=== PATIENT | female | born 1960 | race African-American/Black ===

== ENCOUNTER 2020-01-18 15:33 | Outpatient (REF) | payer OTHER, SELFPAY ==
--- NOTE | 2020-01-18 | XR_ITS ---
EXAMINATION: XR FOOT, LEFT CLINICAL INFORMATION: Left foot pain. COMPARISON: None TECHNIQUE: AP, lateral, and oblique views of the left foot. FINDINGS: There is no acute fracture or dislocation. Small calcifications are seen lateral to the fifth digit phalanges. The tarsal bones are normally aligned. There is a small retrocalcaneal spur. The soft tissues are unremarkable. IMPRESSION: 1. Small degenerative fifth digit calcifications and small retrocalcaneal spur without acute abnormality.
== END 2020-01-18 15:34 | disposition home or self-care (01) ==
LOC: HO.XRAY 15:33
PROVIDERS: PCP Internal Medicine; Visit Provider Emergency Medicine
DX: M79.672 Pain in left foot (principal)
CPT/HCPCS: 73630

== ENCOUNTER 2021-01-02 10:48 | Outpatient (REF) | payer OTHER, SELFPAY ==
--- NOTE | ~2021-01-02 | MM_ITS ---
EXAMINATION: MM SCREENING DIGITAL BREAST TOMOSYNTHESIS, BILATERAL CLINICAL INFORMATION: Screening. Asymptomatic. The lifetime risk of breast cancer based on the Tyrer-Cuzick Model is 9.9%. COMPARISON: Mammography: November 16, 2019 and studies dating back to April 11, 2016 TECHNIQUE: Digital breast tomosynthesis is performed in both the craniocaudal and mediolateral oblique views along with computer-aided detection (CAD). Synthesized 2D images are generated from the tomosynthesis. FINDINGS: There are scattered areas of fibroglandular density (ACR BI-RADS breast composition Category b). There are no significant masses, abnormal calcifications, or other abnormalities. MM/MM tomosynthesis screening BI IMPRESSION: There are no significant changes from prior study. ASSESSMENT: BI-RADS 1: Negative RECOMMENDATION: Routine annual mammography screening. This patient's information was entered into a reminder system with a target due date for their next mammogram.
== END 2021-01-02 10:49 | disposition home or self-care (01) ==
LOC: HO.MAMMO 10:48
PROVIDERS: PCP Internal Medicine; Visit Provider Internal Medicine
DX: Z12.31 Encounter for screening mammogram for malignant neoplasm of breast (principal)
CPT/HCPCS: 77063; 77067

== ENCOUNTER 2021-06-05 10:06 | Outpatient (REF) | payer OTHER, SELFPAY ==
--- NOTE | ~2021-06-05 | XR_ITS ---
EXAMINATION: XR FOOT, RIGHT CLINICAL INFORMATION: Pain COMPARISON: None TECHNIQUE: AP, lateral, and oblique views of the right foot. FINDINGS: Bone alignment is normal. No acute fracture or dislocation is seen. There is periarticular soft tissue calcification or ossification adjacent to the lateral PIP joint of the fifth toe. Joint spaces are otherwise normal. There are is a small plantar calcaneal spur. XR/XR foot RT min 3V IMPRESSION: Small soft tissue calcification or ossification adjacent to the lateral PIP joint of the fifth toe. Small plantar calcaneal spur.
== END 2021-06-05 10:07 | disposition home or self-care (01) ==
LOC: HO.XRAY 10:06
PROVIDERS: Absent Provider Internal Medicine; PCP Internal Medicine; Visit Provider Internal Medicine
DX: M79.671 Pain in right foot (principal)
CPT/HCPCS: 73630

== ENCOUNTER 2022-01-03 11:09 | Outpatient (REF) | payer OTHER, SELFPAY ==
--- NOTE | ~2022-01-03 | MM_ITS ---
EXAMINATION: MM SCREENING DIGITAL BREAST TOMOSYNTHESIS, BILATERAL CLINICAL INFORMATION: Screening. Asymptomatic. Family history breast cancer, mother. The lifetime risk of breast cancer based on the Tyrer-Cuzick Model is 14%. COMPARISON: Mammography: 01/02/2021, 11/16/2019, 06/27/2018 TECHNIQUE: Digital breast tomosynthesis is performed in both the craniocaudal and mediolateral oblique views along with computer-aided detection (CAD). Synthesized 2D images are generated from the tomosynthesis. FINDINGS: There are scattered areas of fibroglandular density (ACR BI-RADS breast composition Category b). There are no significant masses, abnormal calcifications, or other abnormalities. Parenchymal pattern is similar to prior studies. There is no developing density or architectural abnormality. The axilla and skin contours are unremarkable. No significant changes. MM/MM tomosynthesis screening BI IMPRESSION: No mammographic evidence of malignancy. ASSESSMENT: BI-RADS 1: Negative RECOMMENDATION: Routine annual mammography screening. This patient's information was entered into a reminder system with a target due date for their next mammogram.
== END 2022-01-03 11:10 | disposition home or self-care (01) ==
LOC: HO.MAMMO 11:09
PROVIDERS: PCP Internal Medicine; Visit Provider Internal Medicine
DX: Z12.31 Encounter for screening mammogram for malignant neoplasm of breast (principal)
CPT/HCPCS: 77063; 77067

== ENCOUNTER 2022-03-20 | Outpatient (REF) | payer OTHER, SELFPAY ==
--- NOTE | ~2022-03-20 | XR_ITS ---
EXAMINATION: XR KNEE, RIGHT XR KNEE, STANDING BILATERAL CLINICAL INFORMATION: Pain COMPARISON: Bilateral knee radiograph from 09/25/2018 TECHNIQUE: 2 views of the right knee and single views of the bilateral standing knees FINDINGS: No acute visible fracture or dislocation. Bilateral moderate multi compartment degenerative changes. Moderate to severe narrowing of the right medial femorotibial and left femorotibial compartments. Spurring of the tibial spines. Periarticular osteophytes along the right distal femoral condyle, tibial plateau, and superior and inferior margins of the patella. Joint spaces and alignment are otherwise maintained. Trace right-sided knee joint effusion. Soft tissues are unremarkable. XR/XR knee standing BI IMPRESSION: 1. No acute visible fracture or dislocation. 2. Bilateral moderate multi compartment degenerative changes. 3. Trace right-sided knee joint effusion.
--- NOTE | ~2022-03-20 | XR_ITS ---
EXAMINATION: XR KNEE, RIGHT XR KNEE, STANDING BILATERAL CLINICAL INFORMATION: Pain COMPARISON: Bilateral knee radiograph from 09/25/2018 TECHNIQUE: 2 views of the right knee and single views of the bilateral standing knees FINDINGS: No acute visible fracture or dislocation. Bilateral moderate multi compartment degenerative changes. Moderate to severe narrowing of the right medial femorotibial and left femorotibial compartments. Spurring of the tibial spines. Periarticular osteophytes along the right distal femoral condyle, tibial plateau, and superior and inferior margins of the patella. Joint spaces and alignment are otherwise maintained. Trace right-sided knee joint effusion. Soft tissues are unremarkable. XR/XR knee RT 2V IMPRESSION: 1. No acute visible fracture or dislocation. 2. Bilateral moderate multi compartment degenerative changes. 3. Trace right-sided knee joint effusion.
== END 2022-03-20 00:01 | disposition home or self-care (01) ==
LOC: HO.HOSX
PROVIDERS: Visit Provider Physician Assistant
DX: M25.561 Pain in right knee (principal)
CPT/HCPCS: 73560; 73565

== ENCOUNTER 2022-11-09 12:31 | Outpatient (REF) | payer OTHER, SELFPAY ==
[2022-11-09 13:27] LABS: MANUAL DIFF FLAG NO
[2022-11-09 13:35] LABS: Basophils Percent Auto 0.3 % (0-2); Eosinophils Absolute Auto 0.1 X10*3/uL (0.0-0.4); Eosinophils Percent Auto 1.6 % (0-4); Hematocrit 38.6 % (37.0-47.0); Hemoglobin 12.4 g/dl (12.0-16.0); Imm Gran Abs Auto 0.02 X10*3/uL (0.00-0.03); Imm Gran Pct Auto 0.3 % (0.0-0.4); Lymphocytes Absolute Auto 3.1 X10*3/uL (1.2-4.9); Lymphocytes Percent Auto 49.3 % (20-40); Mean Corpuscular HGB Conc 32.1 g/dl (31.0-35.0); Mean Corpuscular Volume 83.9 fL (80.0-98.0); Mean Platelet Volume 9.9 fL (9.4-12.3); Monocytes Absolute Auto 0.6 X10*3/uL (0.1-1.2); Monocytes Percent Auto 9.5 % (2-11); Neutrophils Absolute Auto 2.4 x10*3/uL (2.0-8.3); Platelet Count 236 X10*3/uL (160-400); Red Cell Distribution Width 13.2 % (11.0-16.0); White Blood Count 6.2 X10*3/uL (4.8-10.8)
[2022-11-09 19:21] LABS: Alanine Aminotransferase 16 U/L (0-31); Albumin Level 4.1 g/dL (3.5-5.0); Alkaline Phosphatase 67 U/L (39-117); Amylase 44 U/L (28-100); Aspartate Amino Transferase 15 U/L (5-31); Bilirubin Direct 0.2 mg/dL (0.0-0.5); Bilirubin Total 0.4 mg/dL (0.0-1.0); Lipase 16 U/L (8-78); Total Protein 7.8 g/dL (6.5-8.0)
== END 2022-11-09 12:32 | disposition home or self-care (01) ==
LOC: HO.HHCL 12:31
PROVIDERS: Visit Provider Nurse Practitioner Primary Care
DX: R53.83 Other fatigue (principal); R10.12 Left upper quadrant pain
CPT/HCPCS: 36415; 80076; 82150; 83690; 85025

== ENCOUNTER 2022-12-05 17:23 | Outpatient (REF) | payer OTHER, SELFPAY ==
[2022-12-11 23:08] LABS: HPV mRNA E6/E7 rflx Not Detected (Not Detected)
== END 2022-12-05 17:24 | disposition home or self-care (01) ==
LOC: HO.HHCL 17:23
PROVIDERS: Visit Provider Internal Medicine
DX: Z12.4 Encounter for screening for malignant neoplasm of cervix (principal)
CPT/HCPCS: 87624; 88142

== ENCOUNTER 2023-01-03 08:55 | Outpatient (AMB) | payer OTHER, SELFPAY ==
[2023-01-03 08:59] VITALS: BMI 32.9
--- NOTE | 2023-01-03 08:59 | A.OFFVIS_ITS ---
Intake Vital Signs 01/03/23 08:59 Height 5 ft 2 in Weight 180 lb BMI 32.9 Intake Visit Reasons: OV -Primary Osteoarthritis of both knees Intake Note: Dorothea is a 62 year old female who presents today for a follow up of her left knee. At her last visit injections were discussed but were not administered as she was going to discuss with her eye doctor. Patient reports she doesn't want to get injections today but would like to try going to PT for both of her knees. She is also having concerns of pain in both of her feet, pain is on the medial a spect on both. Allergies No Known Allergies [No Known Allergies*] Allergy (Verified 01/03/23 08:59) HPI OV -Primary Osteoarthritis of both knees HPI Details 62-year-[facility] of bilateral knee pain. The patient states she discussed cortisone injections with her eye doctor and would still like to defer at this time. She would like to move forward with physical therapy to work on the bilateral knees. She states cortisone injections do not give her any relief. She is not interested in moving forward for a total knee arthroplasty. She states she is able to stand and walk around the store but states it causes her pain. The patient is also expressing concerns with pain in the bilateral feet on the medial aspect. She reports a burning sensation in the bilateral feet. Patient confirms a medical history of diabetes mellitus. 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 No ecchymosis, erythema, or joint effusion. No tenderness to palpation to the medial or lateral joint lines. Full knee extension and flexion. Crepitus felt with ROM. Negative Rosailo's. NVI. Assessment & Plan Assessment & Plan (1) Osteoarthritis of right knee: Code(s): M17.11 - Unilateral primary osteoarthritis, right knee Qualifiers: Osteoarthritis type: unspecified Qualified Code(s): M17.11 - Unilateral primary osteoarthritis, right knee (2) Osteoarthritis of left knee: Code(s): M17.12 - Unilateral primary osteoarthritis, left knee Qualifiers: Osteoarthritis type: unspecified Qualified Code(s): M17.12 - Unilateral primary osteoarthritis, left knee Plan Ms. Zheng is a 62-year-old female who presents in the office today for a follow up of bilateral knee pain. The patient states she discussed cortisone injections with her eye doctor and would still like to defer at this time. She would like to move forward with physical therapy to work on the bilateral knees. She states cortisone injections do not give her any relief. She is not interested in moving forward for a total knee arthroplasty. She states she is able to stand and walk around the store but states it causes her pain. The patient is also expressing concerns with pain in the bilateral feet on the medial aspect. She reports a burning sensation in the bilateral feet. Patient confirms a medical history of diabetes mellitus. Bilateral feet: Due to the patient having a burning sensation in her bilateral feet I have asked that she follows up with her PCP due to having a significant medical history of diabetes. Bilateral knees: The patient will be referred to physical therapy to work on the bilateral knees. Follow up will be PRN, or sooner if needed. Orders: Orders PT Evaluation and Treatment Today M17.11 - Unilateral primary osteoarthritis, right knee, M17.12 - Unilateral primary osteoarthritis, left knee Patient Instructions: Scribed for Farida Gerrad PA-C by Nelly Owens biomedical photographer, on 01/03/2023 at 8:56 am, EST. Coding Level of Care Code Est Pt Level 3 (31537) Diagnoses Osteoarthritis of right knee, unspecified osteoarthritis type M17.11 Osteoarthritis type: unspecified Osteoarthritis of left knee, unspecified osteoarthritis type M17.12 Osteoarthritis type: unspecified
== END 2023-01-03 09:24 | disposition home or self-care (01) ==
PROVIDERS: PCP Internal Medicine; Visit Provider Physician Assistant
DX: M17.10 Unilateral primary osteoarthritis, unspecified knee (principal)
CPT/HCPCS: 99213

== ENCOUNTER → 2023-01-03 08:55 | Outpatient (BNVA) | payer OTHER, SELFPAY | PROVIDERS: PCP Internal Medicine; Visit Provider Physician Assistant ==

== ENCOUNTER 2023-01-09 11:07 | Outpatient (REF) | payer OTHER, SELFPAY | END 2023-01-09 11:08 | disposition home or self-care (01) | LOC: HO.MAMMO 11:07 | PROVIDERS: Visit Provider Internal Medicine | DX: Z12.31 Encounter for screening mammogram for malignant neoplasm of breast (principal) | CPT/HCPCS: 77063; 77067 ==

== ENCOUNTER → 2023-01-09 11:30 | Outpatient (BNV) | payer OTHER, SELFPAY | PROVIDERS: Visit Provider Radiology Diagnostic Radiology | DX: Z12.31 Encounter for screening mammogram for malignant neoplasm of breast (principal) | CPT/HCPCS: 77063; 77067 ==

== ENCOUNTER 2023-02-15 10:00 | Outpatient (RCR) | payer OTHER, SELFPAY | END 2023-04-29 10:12 | disposition home or self-care (01) | LOC: HO.PT 10:00 | PROVIDERS: PCP Internal Medicine; Visit Provider Physician Assistant | DX: M17.0 Bilateral primary osteoarthritis of knee (principal) | CPT/HCPCS: 97110; 97140; 97161 ==

== ENCOUNTER 2023-09-18 15:04 | Outpatient (REF) | payer OTHER, SELFPAY ==
[2023-09-18 16:07] LABS: MANUAL DIFF FLAG NO
[2023-09-18 16:24] LABS: Basophils Percent Auto 0.4 % (0-2); Eosinophils Absolute Auto 0.1 X10*3/uL (0.0-0.4); Eosinophils Percent Auto 1.3 % (0-4); Hematocrit 39.1 % (37.0-47.0); Hemoglobin 12.6 g/dl (12.0-16.0); Imm Gran Abs Auto 0.01 X10*3/uL (0.00-0.03); Imm Gran Pct Auto 0.2 % (0.0-0.4); Lymphocytes Absolute Auto 2.1 X10*3/uL (1.2-4.9); Lymphocytes Percent Auto 39.8 % (20-40); Mean Corpuscular HGB Conc 32.2 g/dl (31.0-35.0); Mean Corpuscular Hemoglobin 27.4 pg (27.0-33.0); Mean Platelet Volume 11.3 fL (9.4-12.3); Monocytes Absolute Auto 0.4 X10*3/uL (0.1-1.2); Neutrophils Absolute Auto 2.7 x10*3/uL (2.0-8.3); Neutrophils Percent Auto 51.3 % (45-73); Platelet Count 247 X10*3/uL (160-400); White Blood Count 5.3 X10*3/uL (4.8-10.8)
[2023-09-18 16:57] LABS: Alanine Aminotransferase 22 U/L (0-31); Alkaline Phosphatase 65 U/L (39-117); Anion Gap 16 (12-20); Aspartate Amino Transferase 16 U/L (5-31); Bilirubin Direct 0.1 mg/dL (0.0-0.5); Bilirubin Total 0.4 mg/dL (0.0-1.0); Blood Urea Nitrogen 14 mg/dL (9-16); Calcium 9.5 mg/dL (8.4-10.2); Carbon Dioxide 26 mmol/L (22-29); Chloride 102 mmol/L (96-108); Cholesterol 167 mg/dL (<200); Estimated Glomerular Filt Rate > 60; Glucose Random 277 mg/dL (60-115); HDL Cholesterol 44 mg/dL (>40); LDL Cholesterol Calculated 70 mg/dL (<100); Sodium 140 mmol/L (135-145); Total Protein 7.6 g/dL (6.5-8.0); Triglycerides 267 mg/dL (<150)
[2023-09-18 17:00] LABS: TSH reflex Free T4 2.68 uIU/mL (0.32-4.0); Vitamin D 25-OH Total 17.7 ng/mL (>30)
[2023-09-18 17:10] LABS: Folate 8.4 ng/mL (> or = 4.0); Vitamin B12 727 pg/mL (200-900)
[2023-09-21 17:43] LABS: TS Negative Control Passed; TS Panel A 0; TS Panel B 0; TS Positive Control Passed; TSpotTB Negative (Negative)
== END 2023-09-18 15:05 | disposition home or self-care (01) ==
LOC: HO.HHCL 15:04
PROVIDERS: Visit Provider Internal Medicine
DX: Z00.00 Encounter for general adult medical examination without abnormal findings (principal); Z13.89 Encounter for screening for other disorder
CPT/HCPCS: 36415; 80048; 80061; 80076; 82306; 82607; 82746; 84443; 85025; 86481

== ENCOUNTER 2024-01-15 11:13 | Outpatient (REF) | payer OTHER, SELFPAY ==
--- NOTE | ~2024-01-15 | MM_ITS ---
EXAMINATION: MM SCREENING DIGITAL BREAST TOMOSYNTHESIS, BILATERAL CLINICAL INFORMATION: Screening. Asymptomatic. COMPARISON: Mammography: Comparison is made with available priors TECHNIQUE: Digital breast mammography with tomosynthesis is performed in both the craniocaudal and mediolateral oblique views along with computer-aided detection (CAD). FINDINGS: There are scattered areas of fibroglandular density (ACR BI-RADS breast composition Category b). There are no significant masses, abnormal calcifications, or other abnormalities. MM/MM tomosynthesis screening BI IMPRESSION: No mammographic evidence of malignancy. ASSESSMENT: BI-RADS BI-RADS 1 - Negative RECOMMENDATION: Routine annual mammography screening. 1 year F/U This examination should not preclude the clinical evaluation of a suspicious palpable abnormality. This patient's information was entered into a reminder system with a target due date for their next mammogram. Electronically signed by: Shraddha Porras DO 01/27/2024 12:42 PM EDT
== END 2024-01-15 11:14 | disposition home or self-care (01) ==
LOC: HO.MAMMO 11:13
PROVIDERS: PCP Internal Medicine; Visit Provider Internal Medicine
DX: Z12.31 Encounter for screening mammogram for malignant neoplasm of breast (principal)
CPT/HCPCS: 77063; 77067

== ENCOUNTER → 2024-01-15 11:30 | Outpatient (BNV) | payer OTHER, SELFPAY | PROVIDERS: PCP Internal Medicine; Visit Provider Internal Medicine | DX: Z12.31 Encounter for screening mammogram for malignant neoplasm of breast (principal) | CPT/HCPCS: 77063; 77067 ==

== ENCOUNTER 2024-05-26 13:20 | Outpatient (REF) | payer OTHER, SELFPAY ==
--- OUTSIDE RECORDS SUMMARY | 2024-05-26 14:26 | XMS_ITS | Encounter Summary ---
Author Organization [employer] Address [address] [facility] 7 [place] [address] Care Team Providers Care Blaster Helper Name Role Phone Anya Salgado MD Primary Care Provide r Encounter Details Date Type Department Care Team (Latest Contact Info) Description 03/02/2022 Abstract [facility] CONVERSIONS Dental, Provider, DDS Social History Tobacco Use Types Packs/Day Years Used Date Smoking Tobacco: Never Assessed Comments Unknown Sex and Gender Information Value Date Recorded Sex Assigned at Female 02/12/2022 10:30 AM EDT Legal Sex Female 10:30 AM EDT Gender Identity Female 02/12/2022 10:30 AM EDT Sexual Orientation Straight 02/12/2022 10 :30 AM EDT documented as of this encounter Plan of Treatment Upcoming Encounters Date Type Department Care Team (Late st Contact Info) Description 05/26/2024 2:30 PM EST Office Visit [facility] MEDICINE [address] [place] [address] Byron Cruz MD [address] [place] [address] Arrived 05/28/2024 10:30 AM EST Office Visit [facility] OPTOMETRY [address] [place] [address] Dedra Garcia, KEENAN [address] [place] [address] 06/04/2024 10:00 AM EST Office Visit [facility] ADULT DENTAL [address] [place], [place] [phone] Lluvia Shields [address] [place], [place] [phone] 07/07/2024 11:00 AM EDT Office Visit [facility] MEDICINE [address] [place] [address] Anya Salgado MD [address] [place], [place] [phone] documented as of this encounter Visit Diagnoses Not on filedocumented in this encounter Care Teams Blaster Helper Relationship Specialty Start Date End Date Anya Salgado MD [address] [place] [phone] PCP - General Family Medicine 01/31/18 documented as of this encounter
--- OUTSIDE RECORDS SUMMARY | 2024-05-26 14:26 | XMS_ITS | Encounter Summary ---
Author Organization [employer] Address [address] 7[address] [place] [address] Care Team Providers Care Environmental Restoration Planner Name Role Phone Anya Salgado MD Primary Care Provide r Reason for Visit * Reason Comments Pre-visit Planning SDOH Screening posit jackelyn and Tobacco screening negative Encounter Details Date Type Department Care Team (Late st Contact Info) Description 05/07/2024 Patient Outreach [facility] MEDICINE [address] [place], [place] [phone] Anya Salgado MD [address] [place], [place] [phone] Pre-visit Planning (SDOH Screening positive and Tobacco screening negative) Social History Tobacco Use Types Packs/Day Years Used Date Smoking Tobacco: Never Passive Smoke Exposure: Never Smokeless Tobacco: Never Alcohol Use Standard Drinks/Week Comments Not Currently 0 (1 standard drink = 0.6 oz pur e alcohol) Alcohol Answer Date Recorded Frequency of Alcohol Consumption Not on file 12/31/2023 Average Number of Drinks Not on file 024 Frequency of Binge Drinking Not on file 12/14 Score 0 12/31/2023 Depression Answer Date Recorded Patient Health Questionnaire-9 Score 0 12/31/2023 Patient Health Questionnaire-9 Score 0 12/31/2023 Last PHQ-9: Questionnaire Data Not on file 0 12/31/2023 Housing Stability Answer Date Recorded What is your housing situation today? I have chi quintin 05/07/[address] you li ve. Do you have problems with any of the following? None of the above 05/07/2024 Food Insecurity Answer Date Recorded Within the past 12 months, y ou worried that your food would run out before you got money to buy more: Never True 02/03/2023 Within the past 12 months,th e food you bought just didn't last and you didn't have enough money to get more: Never True Transportation Answer Date Recorded In the past 12 months, has l ack of transportation kept you from medical appts, meetings, work or from getting things needed for daily living? Yes, it has kept me from medical appointments or getting medications. 05/07/2024 Utilities Answer Date Recorded In the past 12 months, has t he electric, gas, oil or water company threatened to shut off services in your home? No 02/03/2023 Depression Answer Date Recorded Patient Health Questionnaire-2 Score 0 12/31/2023 Internet Access Answer Date Recorded Internet Access Q1 Yes 05/07/2024 Internet Access Q2 Not on file 05/07/2024 Comments Unknown Sex and Gender Information Value Date Recorded Sex Assigned at Female 02/12/2022 10:30 AM EDT Legal Sex Female 10:30 AM EDT Gender Identity Female 02/12/2022 10:30 AM EDT Sexual Orientation Straight 02/12/2022 10 :30 AM EDT documented as of this encounter Progress Notes * Stephanie Grier - 05/07/2024 11:32 AM EST QUIANA Mccarty placed successful outbound call to patient for pre-visit planning. Patient name and confirmed. Patient confirms appt date and time, and has transportation arrangements. Biggest concern for appointment at this time is no concerns. Patient advised to bring to appointment a photo id and insurance card. Appropriate screenings completed in anticipation of appointment. SDOH positive. Patient looking for assistance with Transportation. Referral will be placed. documented in this encounter Plan of Treatment Upcoming Encounters Date Type Department Care Team (Late st Contact Info) Description 05/26/2024 2:30 PM EST Office Visit [facility] MEDICINE [address] [place] [phone] Byron Cruz MD [address] [place] [address] Arrived 05/28/2024 10:30 AM EST Office Visit [facility] OPTOMETRY [address] [place] [address] Dedra Garcia, OD [address] [place] [address] 06/04/2024 10:00 AM EST Office Visit [facility] ADULT DENTAL [address] [place] [address] Alyson, Lluvia [address] [place] [address] 07/07/2024 11:00 AM EDT Office Visit [facility] MEDICINE [address] [place] [address] Anya Salgado MD [address] [place] [address] documented as of this encounter Visit Diagnoses Not on filedocumented in this encounter Additional Health Concerns Assessment Noted Time PHQ-9 Depression Total Score: 0 12/31/19 24 10:55 AM EDT documented as of this encounter Care Teams Environmental Restoration Planner Relationship Specialty Start Date End Date Anya Salgado MD [address] [place], [place] [phone] PCP - General Family Medicine 01/31/18 documented as of this encounter
--- OUTSIDE RECORDS SUMMARY | 2024-05-26 14:26 | XMS_ITS | Encounter Summary ---
Author Organization [employer] Address [address] [facility] 7t [place] [address] Care Team Providers Care Client Support Representative Name Role Phone Anya Salgado MD Primary Care Provide r Reason for Visit * Reason Onset Date Comments Med Refill 03/19/2024 Encounter Details Date Type Department Care Team (Late st Contact Info) Description 03/19/2024 Telephone [facility] MEDICINE [address] [place], [place] [phone] Anya Salgado MD [address] [place], [place] [phone] Med Refill Social History Tobacco Use Types Packs/Day Years [...] your housing situation today? I have chi ribeiro 06/12/[address] you li ve. Do you have problems with any of the following? Pests such as bugs, ants, or mice;Water leaks 06/12/2023 Food Insecurity Answer Date Recorded Within the [...] from getting things needed for daily living? No 02/03/2023 Utilities Answer Date Recorded In the past 12 months, has t he electric, gas, oil or water company threatened to shut off services in your home? No 02/03/2023 Depression Answer Date Recorded Patient Health Questionnaire-2 Score 0 12/31/2023 Comments Unknown Sex and Gender Information Value Date Recorded Sex Assigned at Female 02/12/2022 10:30 AM EDT Legal Sex Female 10:30 AM EDT Gender Identity Female 02/12/2022 10:30 AM EDT Sexual Orientation Straight 02/12/2022 10 :30 AM EDT documented as of this encounter Miscellaneous Notes * Telephone Encounter - Barb Cordero LPN - 03/19/2024 1:10 PM EST Medication pended to PCP. * Telephone Encounter - Jos Sow - 03/19/2024 12:11 PM EST TC from pt requesting medication refill. Medications needing refill : glipiZIDE XL (Glucotrol XL) 10 MG 24 hr tablet amLODIPine (Norvasc) 2.5 MG tablet To be sent to: [facility] - [place], [place] - [address] [facility] documented in this encounter Plan of Treatment Upcoming Encounters Date Type Department Care Team (Late st Contact Info) Description 05/26/2024 2:30 PM EST Office Visit [facility] MEDICINE [address] [place] [address] Byron Cruz MD [address] [place] [address] Arrived 05/28/2024 10:30 AM EST Office Visit [facility] OPTOMETRY [address] [place] [address] Dedra Garcia, OD [address] [place] [address] 06/04/2024 10:00 AM EST Office Visit [facility] ADULT DENTAL [address] [place] [address] Alyson, Lluvia [address] [place] [address] 07/07/2024 11:00 AM EDT Office Visit [facility] MEDICINE [address] [place] [address] Anya Salgado MD [address] [place] [address] documented as of this encounter Visit Diagnoses Not on filedocumented in this encounter Additional Health Concerns Assessment Noted Time PHQ-9 Depression Total Score: 0 12/31/19 24 10:55 AM EDT documented as of this encounter Care Teams Client Support Representative Relationship Specialty Start Date End Date Anya Salgado MD [address] [place], [place] [phone] PCP - General Family Medicine 01/31/18 documented as of this encounter
--- OUTSIDE RECORDS SUMMARY | 2024-05-26 14:26 | XMS_ITS | Encounter Summary ---
Author Organization [employer] Address [address] [facility] [address]t [place] [address] Care Team Providers Care Instrumental Teacher Name Role Phone Anya Salgado MD Primary Care Provide r Reason for Visit * Reason Onset Date Comments Chart Prep 05/11/2024 Encounter Details Date Type Department Care Team ([facility] st Contact Info) Description 05/11/2024 Telephone [facility] MEDICINE [address] [place], [place] [phone] Anya Salgado MD [address] [place], [place] [phone] Chart Prep Social History Tobacco Use Types Packs/Day Years [...] housing situation today? I have chi ribeiro 05/07/[address] you li [...] encounter Miscellaneous Notes * Telephone Encounter - Bernadette Brooke [place] - 05/11/2024 10:49 AM EST Chart Prep Attempted to call pt in regards to upcoming PE appt on 05/21/2024. Had to [facility] stating call back number. If pt returns call please inform her that the PE appt she has, the provider she will be seeing has a recommended preference of conducting Annual Exams. Pt would have to wear a gown in case a breast exam is completed. All these visits are chaperoned by pcp's [place]. Labs: not applicable Images: not applicable Vaccines due: Covid Due, Tdap Due, Hep A Due, Hep B Due, RSV in Pharmacy Due, and Shingles in pharmacy Due Referrals: Not Applicable Screenings: Foot Exam and HIV screening Overdue care gaps: Glucose Chart prep for upcoming appt with Dr.Esparza ferguson. LB documented in this encounter Plan of Treatment Upcoming Encounters Date Type Department Care Team (Late st Contact Info) Description 05/26/2024 2:30 PM EST Office Visit [facility] MEDICINE [address] [place] [address] Byron Cruz MD [address] [place] [address] Arrived 05/28/2024 10:30 AM EST Office Visit [facility] OPTOMETRY [address] [place] [address] Dedra Garcia OD [address] [place] [address] 06/04/2024 10:00 AM EST Office Visit [facility] ADULT DENTAL [address] [place] [address] Alyson, Lluvia [address] [place] [address] 07/07/2024 11:00 AM EDT Office Visit [facility] MEDICINE [address] [place] [address] Anya Salgado MD [address] [place] [address] documented as of this encounter Visit Diagnoses Not on filedocumented in this encounter Additional Health Concerns Assessment Noted Time PHQ-9 Depression Total Score: 0 12/31/19 24 10:55 AM EDT documented as of this encounter Care Teams Instrumental Teacher Relationship Specialty Start Date End Date Anya Salgado MD [address] [place] [address] PCP - General Family Medicine 01/31/18 documented as of this encounter
--- OUTSIDE RECORDS SUMMARY | 2024-05-26 14:26 | XMS_ITS | Clinical Summary ---
Author Organization [facility] Address [address] [place] [address] Care Team Providers Care Sanitation Lead Name Role Phone Unavailable Primary Care Provider Unavailabl e Social History Tobacco Use Types Packs/Day Years Used Date Smoking Tobacco: Never Assessed Comments Unknown Sex and Gender Information Value Date Recorded Sex Assigned at Not on file Legal Sex Female 2:24 PM EST Gender Identity Not on file Sexual Orientation Not on file Plan of Treatment Health Maintenance Due Date Last Done Comments Breast Cancer Screening 1961 DTaP,Tdap,and Td Vaccines (1 - Tdap) 1968 Cervical Cancer Screening: P ap Smear 1982 Pneumococcal Vaccine: 50+ Ye ars (1 of 1 - PCV) 2011 Zoster Vaccines (1 of 2) 2011 Colorectal Cancer Screening: Colonoscopy 03/14/2022 Depression Screening 03/14/2022 HIV Screening 03/14/2022 Hepatitis C Screening 03/14/2022 Social Influencers of Health Screening 03/14/2022 COVID-19 Vaccine ( - 2023-2 5 season) 2023 Influenza Vaccine (#1) 2023 RSV Immunization Patients 60 + Years Old (1 - 1-dose 75+ series) 2036 HIB Vaccines Aged Out No longer eligi ble based on patient's age to complete this topic HPV Vaccines Aged Out No longer eligi ble based on patient's age to complete this topic Hepatitis A Vaccines Aged Out No long er eligible based on patient's age to complete this topic Hepatitis B Vaccines Aged Out No long er eligible based on patient's age to complete this topic IPV Vaccines Aged Out No longer eligi ble based on patient's age to complete this topic MMR Vaccines Aged Out No longer eligi ble based on patient's age to complete this topic Meningococcal ACWY Vaccine Aged Out N o longer eligible based on patient's age to complete this topic Meningococcal B Vacine Aged Out No lo nger eligible based on patient's age to complete this topic Pneumococcal Vaccine: Pediat rics (0 to 5 Years) and At-Risk Patients (6 to 64 Years) Aged Out No longer eligible b ased on patient's age to complete this topic RSV Immunization Patients Un terrell 20 months Aged Out No longer eligible b ased on patient's age to complete this topic Varicella Vaccines Aged Out No longer eligible based on patient's age to complete this topic
--- OUTSIDE RECORDS SUMMARY | 2024-05-26 14:26 | XMS_ITS | Encounter Summary ---
Author Organization [employer] Address [address] [place] [address] Care Team Providers Care Getter Welder Name Role Phone Anya Salgado MD Primary Care Provide r Encounter Details Date Type Department Care Team (Latest Contact Info) Description 05/26/2024 Travel Social History Tobacco Use Types Packs/Day Years [...] Description 05/26/2024 2:30 PM EST Office Visit [facility] [address] [place] [phone] Byron Cruz MD [address] [place] [address] Arrived 05/28/2024 10:30 AM EST Office Visit [facility] OPTOMETRY [address] [place] [address] Dedra Garcia, OD [address] [place] [address] 06/04/2024 10:00 AM EST Office Visit [facility] ADULT DENTAL [address] [place] [address] Alyson, Lluvia [address] [place] [address] 07/07/2024 11:00 AM EDT Office Visit [facility] [address] [place] [address] Anya Salgado MD [address] [place] [phone] documented as of this encounter Visit Diagnoses Not on filedocumented in this encounter Additional Health Concerns Assessment Noted Time PHQ-9 Depression Total Score: 0 12/31/19 24 10:55 AM EDT documented as of this encounter Care Teams Getter Welder Relationship Specialty Start Date End Date Anya Salgado MD [address] [place] [address] PCP - General Family Medicine 01/31/18 documented as of this encounter
--- OUTSIDE RECORDS SUMMARY | 2024-05-26 14:26 | XMS_ITS | Encounter Summary ---
Author Organization [employer] Address [address] [facility] 7[address] [place] [address] Care Team Providers Care Keymodule Assembly Machine Tender Name Role Phone Anya Salgado MD Primary Care Provide r Reason for Visit * Reason Onset Date Comments CHW 06/12/2023 Encounter Details Date Type Department Care Team ([facility] st Contact Info) Description 06/12/2023 Telephone [facility]ICINE [address] [place], [place] [phone] Anya Salgado MD [address] [place], [place] [phone] CHW Social History Tobacco Use Types Packs/Day Years Used Date Smoking Tobacco: Never Smokeless Tobacco: Never Alcohol Use Standard Drinks/Week Comments Not Currently 0 (1 standard drink = 0.6 oz pur e alcohol) Depression Answer Date Recorded Patient Health Questionnaire-9 Score 0 12/05/2022 Housing Stability Answer Date Recorded What is [...] Date Recorded Patient Health Questionnaire-2 Score 0 12/05/2022 Comments Unknown Sex and Gender Information Value Date Recorded Sex Assigned at Female 02/12/2022 10:30 AM EDT Legal Sex Female 10:30 AM EDT Gender Identity Female 02/12/2022 10:30 AM EDT Sexual Orientation Straight 02/12/2022 10 :30 AM EDT documented as of this encounter Miscellaneous Notes * Telephone Encounter - Kiet Bacon Wendy - 06/12/2023 3:35 PM EST Tc from pt returning Phone call. CHW Ej Ulrich, placed outbound call to patient for assistance with SDOH as a referral was placed by the provider. Patient had screened positive for the following SDOH insecurities. No answer atthis time. Patient's name and were not confirmed. CHW left detailed message and provided contact information requesting return call for assistance. Patient educated on extended clinic hours on Mondays through Wednesdays, and Walk-In Urgent Care Located in [facility] of [facility]. Patient provided with after-hours line for [facility], , which offer night time triage service and option to transfer toon call provider if needed. documented in this encounter Plan of Treatment Upcoming Encounters Date Type Department Care Team ([facility] st Contact Info) Description 05/26/2024 2:30 PM EST Office Visit [facility] MEDICINE [address] [place], [place] [phone] Byron Cruz MD [address] [place] [address] Arrived 05/28/2024 10:30 AM EST Office Visit [facility] OPTOMETRY [address] [place], [place] [phone] Dedra Garcia, OD [address] [place] [address] 06/04/2024 10:00 AM EST Office Visit [facility] ADULT DENTAL [address] [place] [address] Teddy Shieldsaris [address] [place] [address] 07/07/2024 11:00 AM EDT Office Visit [facility] MEDICINE [address] [place] [address] Anya Salgado MD [address] [place] [address] documented as of this encounter Visit Diagnoses Not on filedocumented in this encounter Additional Health Concerns Assessment Noted Time PHQ-9 Depression Total Score: 0 12/06/19 10:30 AM EDT documented as of this encounter Care Teams Keymodule Assembly Machine Tender Relationship Specialty Start Date End Date Anya Salgado MD [address] [place] [phone] PCP - General Family Medicine 01/31/18 documented as of this encounter
--- OUTSIDE RECORDS SUMMARY | 2024-05-26 14:26 | XMS_ITS | Encounter Summary ---
Author Organization [employer] Address [address] [facility] 7 [place] [address] Care Team Providers Care Ase Certified Technician Name Role Phone Anya Salgado MD Primary Care Provide r Encounter Details Date Type Department Care Team (Latest Contact Info) Description 04/21/2019 Abstract [facility] CONVERSIONS Dental, Provider, DDS Social History Tobacco [...] Description 05/26/2024 2:30 PM EST Office Visit [facility] MEDICINE [address] [place] [address] Byron Cruz MD [address] [place] [address] Arrived 05/28/2024 10:30 AM EST Office Visit [facility] OPTOMETRY [address] [place] [address] Dedra Garcia, KEENAN [address] [place] [address] 06/04/2024 10:00 AM EST Office Visit [facility] ADULT DENTAL [address] [place] [address] Lluvia Shields [address] [place] [address] 07/07/2024 11:00 AM EDT Office Visit [facility] MEDICINE [address] [place] [address] Anya Salgado MD [address] [place], [place] [phone] documented as of this encounter Visit Diagnoses Not on filedocumented in this encounter Care Teams Ase Certified Technician Relationship Specialty Start Date End Date Anya Salgado MD [address] [place], [place] [phone] PCP - General Family Medicine 01/31/18 documented as of this encounter
--- OUTSIDE RECORDS SUMMARY | 2024-05-26 14:26 | XMS_ITS | Encounter Summary ---
Author Organization [employer] Address [address] [facility] [address] [place] [address] Care Team Providers Care Supervisor Force Adjustment Name Role Phone Anya Salgado MD Primary Care Provide r Reason for Visit * Reason Comments Care Coordination CHW outreach for SDO H PT-1 and food needs-referral completed Encounter Details Date Type Department Care Team (Latest Contact Info) Description 05/07/2024 Patient Outreach [facility]INE [address] [place], [place] [phone] Anya Salgado MD [address] [place], [place] [phone] Care Coordination (CHW outreach for SDOH PT-1 and food needs-referral completed /) Social History Tobacco Use Types Packs/Day Years [...] as of this encounter Progress Notes * Ej Ulrich - 05/07/2024 2:26 PM EST CHW Ej Ulrich, placed outbound call to patient for assistance with SDOH as a referral was received by the provider. Patient's name and were confirmed. Patient screened positive for the following SDOH food insecurities. CHW referral patient to the local list of pantries in the area for help. CHW advice patient to connect with [employer] insurance to get more resources for her transportation need s. Patient verbalizes understanding, and able to agree with plan to follow up. Patient educated on extended clinic hours on Mondays through Wednesdays, and Walk-In Urgent Care Located in [facility] of [facility]. Patient provided with after-hours line for [facility], , which offer night time triage service and option to transfer to crm functional analyst provider if needed. documented in this encounter Plan of Treatment Upcoming Encounters Date Type Department Care Team (Late st Contact Info) Description 05/26/2024 2:30 PM EST Office Visit [facility] [address] [place] [address] Byron Cruz MD [address] [place] [address] Arrived 05/28/2024 10:30 AM EST Office Visit [facility] OPTOMETRY [address] [place] [address] Dedra Garcia, OD [address] [place] [address] 06/04/2024 10:00 AM EST Office Visit [facility] ADULT DENTAL [address] [place] [address] Alyson, Lluvia [address] [place] [address] 07/07/2024 11:00 AM EDT Office Visit [facility] MEDICINE [address] [place] [address] Anya Salgado MD [address] [place] [address] documented as of this encounter Visit Diagnoses Not on filedocumented in this encounter Additional Health Concerns Assessment Noted Time PHQ-9 Depression Total Score: 0 12/31/19 24 10:55 AM EDT documented as of this encounter Care Teams Supervisor Force Adjustment Relationship Specialty Start Date End Date Anya Salgado MD [address] [place] [address] PCP - General Family Medicine 01/31/18 documented as of this encounter
--- OUTSIDE RECORDS SUMMARY | 2024-05-26 14:26 | XMS_ITS | Clinical Summary ---
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 2 Active gabapentin (Neurontin) 100 MG capsule Take 100 mg by mouth 2 times daily. 2 Active FREESTYLE LITE test strip TEST BLOOD SUGAR TWICE DAILY 2 Active ipratropium (Atrovent) 0.06 % nasal spray SPRAY 2 SPRAYS IN EACH NOSTRIL THREE TIMES DAILY NEEDED 2 Active ketoconazole (NIZOral) 2 % cream APPLY TO THE AFFECTED AREA(S) EVERY DAY 2 Active TRUEplus Lancets 33G misc TEST BLOOD SUGAR TWICE DAILY 2 Active Multiple Vitamin (Multi-Vitamin) tablet Take 1 tablet by mouth at bed time. 0 Active ondansetron (Zofran) 4 MG tablet Take 8 mg by mouth 2 times daily. 2 Active prednisoLONE acetate (Pred-Forte) 1 % ophthalmic suspension PLACE 1 DROP IN THE RIGHT EYE FOUR TIMES DAILY FOR 4 DAYS 2 Active atorvastatin (Lipitor) 40 MG tabletIndication s:Type 2 diabetes mellitus with hyperglycemia, without long-term current use of insulin (CMS/HCC) Take 1 tablet (40 mg) by mouth in the morning. 30 tablet 11 3 Active pantoprazole (ProtoNix) 40 MG EC tabletIndication s:Gastroesophage al reflux disease without esophagitis Take 1 tablet (40 mg) by mouth in the morning. 90 tablet 1 3 Active hydrOXYzine HCl (Atarax) 25 MG tabletIndication s:Pruritus Take 1 tablet (25 mg) by mouth if needed in the morning, at noon, and at bedtime for itching. 90 tablet 3 Active acetaminophen (Tylenol 8 Hour) 650 MG ER tabletIndication s:Neck pain,Acute pain of right shoulder Take 2 tablets (1,300 mg) by mouth every 8 (eight) hours. 30 tablet 2 3 Active brimonidine (AlphaGAN P) 0.2 % ophthalmic solution INSTILL 1 DROP IN EACH EYE TWICE DAILY 3 Active ketorolac (Acular) 0.5 % ophthalmic solution INSTILL 1 DROP IN THE RIGHT EYE FOUR TIMES DAILY FOR 2 DAYS AFTER laser THEN STOP 4 Active lidocaine (Lidoderm) 5 % patchIndications :Muscle spasm of shoulder region APPLY 1 PATCH TOPICALLY TO SKIN IN THE MORNING. LEAVE ON FOR 12 HOURS AND OFF FOR 12 HOURS DIRECTED 30 patch 1 4 Active cholecalciferol (Vitamin D-3) 25 MCG tabletIndication s:Vitamin D deficiency TAKE 1 TABLET BY MOUTH ONCE DAILY 90 tablet 1 4 Active amLODIPine (Norvasc) 2.5 MG tablet TAKE 1 TABLET BY MOUTH EVERY MORNING 90 tablet 3 4 Active pioglitazone (Actos) 15 MG tabletIndication s:Type 2 diabetes mellitus with hyperglycemia, without long-term current use of insulin (CMS/HCC) Take 1 tablet (15 mg) by mouth Once per day. 90 tablet 1 4 04/01/20 25 Active glipiZIDE XL (Glucotrol XL) 10 MG 24 hr tabletIndication s:Type 2 diabetes mellitus with hyperglycemia, without long-term current use of insulin ([facility]) Take 1 tablet (10 mg) by mouth 2 times daily. Do not crush, chew, or split. 180 tablet 3 4 Active empagliflozin (Jardiance) 25 MGIndications:Ty pe 2 diabetes mellitus with hyperglycemia, without long-term current use of insulin (CMS/[facility]) Take 1 tablet (25 mg) by mouth Once per day. 90 tablet 3 4 04/01/20 25 Active ibuprofen 800 MG tabletIndication s:Polyarthralgia Take 1 tablet (800 mg) by mouth Every 6-8 hours as needed for moderate pain. 30 tablet 4 Active acetaminophen (Tylenol 8 Hour) 650 MG ER tabletIndication s:Polyarthralgia Take 1 tablet (650 mg) by mouth every 8 (eight) hours if needed for mild pain. Do not crush, chew, or split. 60 tablet 1 4 05/11/19 25 Active Problems Problem Noted Date Diagnosed Date Polyarthralgia 04/01/2024 Assessment & Plan (04/01/2024 11:57 AM EST): Alternate acetaminophen with ibuprofen only if its needed Chronic right shoulder pain 12/31/2023 Chronic right-sided thoracic back pain Other chest pain 12/31/2023 Herpes zoster without complication 12/31/2023 Dental caries 11/27/2023 Localized gingival recession 11/27/2023 Health care maintenance 09/18/2023 Pre-operative exam 06/18/2023 Assessment & Plan (06/18/2023 9:48 AM EST): Pt is cleared for MAC anesthesia without further risk stratification. She is low risk for a low risk surgery. 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 Initial goal of 30 min walk 3-5x/week. Increase as tolerated. - low-sodium diet (goal: <2g/day) and heart healthy diet such as DASH to reduce BP and prevent ASCVD. - Home BP monitoring 1-2 x day with goal of <140/90. - Seek immediate medical attention for chest pain, palpitations, SOB, syncope, or sudden changes in mental status. - Do not change or discontinue current prescriptions without first consulting health care provider Assessment & Plan (12/31/2023 3:12 PM EDT): Likely white coat syndrome I advise: - Aerobic exercise to reduce BP. Initial goal of 30 min walk 3-5x/week. Increase as tolerated. - low-sodium diet (goal: <2g/day) and heart healthy diet such as DASH to reduce BP and prevent ASCVD. - Home BP monitoring 1-2 x day with goal of <140/90. - Seek immediate medical attention for chest pain, palpitations, SOB, syncope, or sudden changes in mental status. - Do not change or discontinue current prescriptions without first consulting health care provider Assessment & Plan (09/18/2023 2:40 PM EDT): Today patient did not took her medication, I advise to take it every day without missing any dose - Aerobic exercise to reduce BP. Initial goal of 30 min walk 3-5x/week. Increase as tolerated. - low-sodium diet (goal: <2g/day) and heart healthy diet such as DASH to reduce BP and prevent ASCVD. - Home BP monitoring 1-2 x day with goal of <140/90. - Seek immediate medical attention for chest pain, palpitations, SOB, syncope, or sudden changes in mental status. - Do not change or discontinue current prescriptions without first consulting health care provider Assessment & Plan (06/19/2023 12:29 PM EST): Maintenance: BMP: up to date Lipid Panel: up to date ASCVD Risk: on atorvastatin 40mg daily - Aerobic exercise to reduce BP. Initial goal of 30 min walk 3-5x/week. Increase as tolerated. - low-sodium diet (goal: <2g/day) and heart healthy diet such as DASH to reduce BP and prevent ASCVD. - Home BP monitoring 1-2 x day with goal of <140/90. - Seek immediate medical attention for chest pain, palpitations, SOB, syncope, or sudden changes in mental status. - Do not change or discontinue current prescriptions without first consulting health care provider Assessment & Plan (02/20/2023 10:30 AM EST): Maintenance: BMP: up to date Lipid Panel: up to date ASCVD Risk: on atorvastatin 40mg - Aerobic exercise to reduce BP. Initial goal of 30 min walk 3-5x/week. Increase as tolerated. - low-sodium diet (goal: <2g/day) and heart healthy diet such as DASH to reduce BP and prevent ASCVD. - Home BP monitoring 1-2 x day with goal of <140/90. - Seek immediate medical attention for chest pain, palpitations, SOB, syncope, or sudden changes in mental status. - Do not change or discontinue current prescriptions without first consulting health care provider Assessment & Plan (12/05/2022 10:56 AM EDT): - Aerobic exercise to reduce BP. Initial goal of 30 min walk 3-5x/week. Increase as tolerated. - low-sodium diet (goal: <2g/day) and heart healthy diet such as DASH to reduce BP and prevent ASCVD. - Home BP monitoring 1-2 x day with goal of <140/90. - Seek immediate medical attention for chest pain, palpitations, SOB, syncope, or sudden changes in mental status. - Do not change or discontinue current prescriptions without first consulting health care provider -log BP at home come back in 2 weeks for nurse visit if BP is not At goal plan is to increase her amlodipine to 10mg daily Assessment & Plan (08/15/2022 4:38 PM EDT): Maintenance: BMP: ordered today Lipid Panel: ordered today ASCVD Risk: Calculate pending updated labs EKG: Obtain baseline at f/u - Aerobic exercise to reduce BP. Initial goal of 30 min walk 3-5x/week. Increase as tolerated. - low-sodium diet (goal: <2g/day) and heart healthy diet such as DASH to reduce BP and prevent ASCVD. - Home BP monitoring 1-2 x day with goal of <140/90. - Seek immediate medical attention for chest pain, palpitations, SOB, syncope, or sudden changes in mental status. - Do not change or discontinue current prescriptions without first consulting health care provider Neck pain 05/09/2022 Snoring 05/09/2022 Tinea pedis 05/09/2022 Type 2 diabetes mellitus wit h hyperglycemia, without long-term current use of insulin 08/23/2017 Assessment & Plan (04/01/2024 11:58 AM EST): Diabetes is: not controlled - Lab Results Component Value Date HGBA1C 8.5 (A) 04/01/2024 HGBA1C 8.0 (A) 12/31/2023 HGBA1C 8.3 (A) 09/18/2023 - Lab Results Component Value Date MICROALBUR 0.2 03/02/2022 CREATININE 0.91 09/18/2023 -Changes: c/w glipizide 10mg BID, jardiance 25mg daily, I added today pioglitazone 15mg daily - Diabetic eye exam:up to date - Diabetic foot exam:pending - Continue lifestyle modifications - Continue current medications - Follow up: 3 months Assessment & Plan (12/31/2023 3:14 PM EDT): Diabetes is: not controlled - Lab Results Component Value Date HGBA1C 8.0 (A) 12/31/2023 HGBA1C 8.3 (A) 09/18/2023 HGBA1C 8.4 (A) 06/19/2023 - Lab Results Component Value Date MICROALBUR 0.2 03/02/2022 CREATININE 0.91 09/18/2023 -Changes: I advise improvement on diabetic diet and exercise - Diabetic eye exam:up to date - Diabetic foot exam:pending - Continue lifestyle modifications - Continue current medications - Follow up: 3 months Assessment & Plan (09/18/2023 2:41 PM EDT): Diabetes is: not controlled - Lab Results Component Value Date HGBA1C 8.3 (A) 09/18/2023 HGBA1C 8.4 (A) 06/19/2023 HGBA1C 9.5 (A) 02/20/2023 - Lab Results Component Value Date MICROALBUR 0.2 03/02/2022 CREATININE 0.98 08/15/2022 -Changes: patient declines medications adjustments she will continue to work in diabetic diet - Diabetic eye exam:up to date - Diabetic foot exam:pending - Continue lifestyle modifications - Continue current medications - Follow up: 3 months Assessment & Plan (06/19/2023 12:30 PM EST): Diabetes is: not controlled but improved - Lab Results Component Value Date HGBA1C 8.4 (A) 06/19/2023 HGBA1C 9.5 (A) 02/20/2023 HGBA1C 7.8 (A) 12/05/2022 - Lab Results Component Value Date MICROALBUR 0.2 03/02/2022 CREATININE 0.98 08/15/2022 -Changes: I increase jardiance to 25mg daily - Diabetic eye exam:up to date - Diabetic foot exam:pending - Continue lifestyle modifications - Continue current medications - Follow up: 3 months Assessment & Plan (02/20/2023 10:12 AM EST): - Lab Results Component Value Date HGBA1C 7.8 (A) 12/05/2022 HGBA1C 8.5 (A) 08/15/2022 - Lab Results Component Value Date MICROALBUR 0.2 03/02/2022 CREATININE 0.98 08/15/2022 - - Diabetic eye exam: - Diabetic foot exam: - Continue lifestyle modifications - Continue current medications - Assessment & Plan (12/05/2022 10:59 AM EDT): - Lab Results Component Value Date HGBA1C 7.8 (A) 12/05/2022 HGBA1C 8.5 (A) 08/15/2022 - Lab Results Component Value Date MICROALBUR 0.2 03/02/2022 CREATININE 0.98 08/15/2022 - - Diabetic eye exam: - Diabetic foot exam: - Continue lifestyle modifications Patient is not using her trulicity she does not like injections, I went up on glipizide to 10mg BID Assessment & Plan (08/15/2022 4:40 PM EDT): - Lab Results Component Value Date HGBA1C 8.5 (A) 08/15/2022 - Lab Results Component Value Date MICROALBUR 0.2 03/02/2022 - Diabetic eye exam: up to date - Diabetic foot exam: pending - Continue lifestyle modifications I discontinue invokana due to side effect repetitive vaginal yeast infection and itchiness, I will start her on trulicity, I instructed to log glucose for next appointment Gastroesophageal reflux disease without esophagi tis 04/01/2017 Nonalcoholic steatohepatitis 11/28/2016 Encounters Date Type Department Care Team Description 05/26/2024 2:30 PM EST Office Visit [facility] MEDICINE [address] [place] [id number] Byron Cruz MD Arrived 05/26/2024 Travel 05/11/[address] [address] Anya Salgado MD Chart Prep 05/07/2024 Patient Outreach [address] [address] Anya Salgado MD Care Coordination ([facility] outreach for SDOH PT-1 and food needs-referral completed /) 05/07/2024 Patient Outreach [address] [address] Anya Salgado MD Pre-visit Planning (SDOH Screening positive and Tobacco screening negative) 04/03/[address] [address] Anya Salgado MD Prior Authorization ([facility] Request: Edilberto) 04/01/2024 10:00 AM EST Office Visit [facility] MEDICINE [address] [place] [address] Anya Salgado MD Polyarthralgia (Primary Dx); Type 2 diabetes mellitus with hyperglycemia, without long-term current use of insulin ([facility]); Essential hypertension; Encounter for immunization 04/01/2024 Travel 03/30/2024 Telephone [facility] MEDICINE [address] [place] [address] Niru Kulkarni MA Chart Prep 03/19/2024 Telephone [facility] [address] [place] [address] Anya Salgado MD Med Refill 03/18/2024 Refill [facility] MEDICINE [address] [place] [address] Anya Salgado MD Type 2 diabetes mellitus with hyperglycemia, without long-term current use of insulin ([facility]) from Last 3 Months Immunizations Name Administration Dates Next Due Influenza Injectable Quadriv alant Preservative Free IIV4 MDCK 01/22/2020 Influenza injectable quadriv alent IIV4 with preservative 01/31/2018,04/01/2017 Influenza injectable quadriv alent preservative free 02/20/2023,02/14/2022,02/01/2021,2019 Influenza, seasonal, injecta ble, preservative free 04/01/2024 Pneumococcal Conjugate PCV 20 09/18/2023 Varicella 02/18/2016 Social History Tobacco Use Types Packs/Day Years Used Date Smoking Tobacco: Never Passive Smoke Exposure: Never Smokeless Tobacco: Never Tobacco Cessation:Counseling Given: Not Answered Alcohol Use Standard Drinks/Week Comments Not Currently [...] Orientation Straight 02/12/2022 10 :30 AM EDT Last Filed Vital Signs Vital Sign Reading Time Taken Comments Blood Pressure 125/73 04/01/2024 9:59 AM EST Pulse 68 04/01/2024 9:59 AM EST Temperature 36.3 ??C (97.4 ??F) 04/01/2024 9:59 AM ES T Respiratory Rate 20 04/01/2024 9:59 AM EST Oxygen Saturation 99% 12/31/2023 10:55 AM EDT Inhaled Oxygen Concentration - - Weight 81.9 kg (180 lb 9.6 oz) 04/01/2024 9:59 A M EST Height 157.5 cm (5' 2 ) 04/01/2024 9:59 AM EST Body Mass Index 33.03 04/01/2024 9:59 AM EST Plan of Treatment Upcoming Encounters Date Type Department Care Team (Late st Contact Info) Description 05/26/2024 2:30 PM EST Office Visit [facility] MEDICINE [address] [place] [address] Byron Cruz MD [address] [place] [address] Arrived 05/28/2024 10:30 AM EST Office Visit [facility] OPTOMETRY [address] [place] [address] Tarka, Dedra, OD [address] [place] [address] 06/04/2024 10:00 AM EST Office Visit [facility] ADULT DENTAL [address] [place] [address] Alyson, Lluvia [address] [place] [address] 07/07/2024 11:00 AM EDT Office Visit [facility] MEDICINE [address] [place] [address] Anya Salgado MD [address] [place] [address] Health Maintenance Due Date Last Done Comments CT Colonography 1961 Colonoscopy 1961 FIT 1960 FOBT 1960 HIV Screening 1960 Sigmoidoscopy 1961 Diabetes: Foot Exam 1971 Hepatitis C Screening 1979 DTaP/Tdap/Td Vaccines (1 - Tdap) 1980 Hepatitis A Vaccines (1 of 2 - Risk 2-dose series) 1980 Zoster Vaccines (1 of 2) 04/14/2016 Hepatitis B Vaccines (1 of 3 - Risk 3-dose series) 2021 RSV Patients and Patients Aged 60 years or older (1 - Risk 60-74 years 1-dose series) 2021 Diabetes: Urine Protein Screening 08/16/2023 08/15/2022, 03/02/2022, 07/26/2021, Additional history exists COVID-19 Vaccine ( season) 2023 02/14/2022, 05/03/2021, 07/18/2020, Additional history exists Dental Oral Exam 05/30/2024 11/27/2023, , 04/21/2019, Additional history exists Dental Prophylaxis 05/30/2024 11/27/2023, 1 05/02/2021, 04/21/2019, Additional history exists Diabetes: Hemoglobin A1C 06/30/2024 024, 12/31/2023, 09/18/2023, Additional history exists Lipid Panel 09/17/2024 09/18/2023, 0506/2022, 07/26/2021, Additional history exists Dental X-Ray: Bitewings 11/27/2024 11/27/19 24, 03/02/2022, 04/21/2019, Additional history exists Alcohol/Substance Use Screening 12/30/2024 12/31/2023 Depression Screening 12/30/2024 12/31/2023, 12/31/19 24 Mammogram 01/14/2025 01/15/2024, 12/15, 01/03/2022, Additional history exists Eye Exam 03/14/2025 03/14/2023, 02/15, 03/14/2023, Additional history exists Tobacco Screening 04/01/2025 04/01/2024 SDOH Screening 05/07/2025 05/07/2024 Colorectal Cancer Screening 03/16/2026 FIT DNA/Cologuard 03/16/2026 03/16/2023 Dental X-Ray: Full Mouth 11/27/2026 11/27/2023, 0604/2016 Cervical Cancer Screening 12/06/2027 HPV/Cotest 12/06/2027 12/05/2022, 11/13, 10/19/2016 Pap Smear 12/06/2027 12/05/2022 Pneumococcal Vaccine: 50+ Years Completed 09/18/2023 Influenza Vaccine Completed 04/01/2024, , 02/14/2022, Additional history exists HIB Vaccines Aged Out No longer eligi ble based on patient's age to complete this topic HPV Vaccines Aged Out No longer eligi ble based on patient's age to complete this topic IPV Vaccines Aged Out No longer eligi ble based on patient's age to complete this topic Meningococcal Vaccine Aged Out No patricio shereen eligible based on patient's age to complete this topic RSV under 20 months Aged Out No longe r eligible based on patient's age to complete this topic Rotavirus Vaccines Aged Out No longer eligible based on patient's age to complete this topic Procedures Procedure Name Priority Date/Time Associated Diagnosis Comments POCT GLYCATED HEMOGLOBIN, TOTAL Routine 04/01/2024 10:01 AM EST Type 2 diabetes mellitus with hyperglycemia, without long-term current use of insulin ([facility]) POCT GLUCOSE Routine 04/01/2024 10:00 AM EST Type 2 diabetes mellitus with hyperglycemia, without long-term current use of insulin ([facility]) BI MAMMOGRAM SCREENING TOMOSYNTHESIS BILATERAL Routine 01/15/2024 11:20 AM EDT PROPHYLAXIS - ADULT Routine 11/27/2023 1 :00 PM EDT DIAGNOSTIC - DIAGNOSTIC IMAGING - INTRAORAL - COMPREHENSIVE SERIES OF RADIOGRAPHIC IMAGES Routine 11/27/2023 1:00 PM EDT PERIODIC ORAL EVALUATION - ESTABLISHED PATIENT Routine 11/27/2023 1:00 PM EDT Dental caries Localized gingival recession Encounter for dental examination LIPID PANEL, STANDARD Routine 09/18/2023 3:06 PM EDT Health care maintenance LAB COLOGUARD?? COLON CANCER SCREEN Routine 03/16/2023 10:25 AM EST Colon cancer screening HPV MRNA E6/E7 REFLEX TO HPV 16, 18/45 Routine 12/05/2022 12:00 AM EDT PAP SMEAR Routine 12/05/2022 ALBUMIN, RANDOM URINE W/O CREATININE Routine 08/15/2022 4:31 PM EDT Type 2 diabetes mellitus with hyperglycemia, without long-term current use of insulin ([facility]) from Last 3 Months or Most Recently Relevant to Health Maintenance Results * (ABNORMAL) POCT HGB A1C (04/01/2024 10:01 AM EST) Pathologist [facility] Hemoglobin A1C 8.5(A) 4.0 - 6.0 % QC Media Lot # [id number] Lot# Expiration Date [id number] Blood 04/01/2024 10:0 1 AM EST Anya Castle MD POINT OF CARE TEST EN TER/EDIT ORDERABLES Final Result * (ABNORMAL) POCT Glucose (04/01/2024 10:00 AM EST) [facility] Glucose Blood, POC 342(A) 60 - 200 mg/dL QC Media Lot # [id number] Lot# Expiration Date ,025 Blood Capillary blood specimen / Unknown 04/01/2024 10:00 AM EST Anya Castle MD POINT OF CARE TEST EN TER/EDIT ORDERABLES Final Result * BI Mammogram Screening Tomosynthesis Bilateral (01/15/2024 11:20 AM EDT) Anatomical Region Laterality Modality Breast Bilateral Mammography 01/15/2024 11:2 0 AM EDT Narrative 01/27/2024 12:45 PM EDT ? [facility] ? [address] ?[place] [address] ? Mammography Report ? Signed ? Patient: Norm,Dorothea ?MR#: [id number] ?? 49 ? : 1960 ?Acct:[id number] ? Age/Sex: 63 / F ?ADM Date: 10/02/24 ? Loc: HO.MAMMO ? Attending Dr: nAya Castle MD ? Ordering Physician: Anya Salgado MD ?Results: ?? 1Negative ? Date of Service: 01/15/24 ?Follow Up: 1 Year From Orig ?? inal Mammogram ? Procedure(s): MM tomosynthesis screening BI ?? Accession Number(s): [id number] ? cc: Anya Salgado MD ? EXAMINATION: ?? MM SCREENING DIGITAL BREAST TOMOSYNTHESIS, BILATERAL ? CLINICAL INFORMATION: ? Screening. Asymptomatic. ? COMPARISON: ?? Mammography: Comparison is made with available priors ? TECHNIQUE: ?? Digital breast mammography with tomosynthesis is performed in both the ?? craniocaudal and mediolateral oblique views along with computer-aided ?? detection (CAD). ? FINDINGS: ?? There are scattered areas of fibroglandular density (ACR BI-RADS breast ?? composition Category b). ? There are no significant masses, abnormal calcifications, or other ?? abnormalities. ? MM/MM tomosynthesis screening BI ?? IMPRESSION: ?? No mammographic evidence of malignancy. ? ASSESSMENT: ? BI-RADS BI-RADS 1 - Negative ? RECOMMENDATION: ?? Routine annual mammography screening. ? 1 year F/U ? This examination should not preclude the clinical evaluation of a ?? suspicious palpable abnormality. ? This patient's information was entered into a reminder system with a ?? target due date for their next mammogram. ? Electronically signed by: ??Shraddha Porras DO ??01/27/2024 12:42 PM EDT ?? RP ? Dictated By: ?Shraddha Porras DO ? Signed By: ?<Electronically signed by Shraddha Porras, DO in OV> ? 01/27/24 1242 ? DD/ 1120 ? TD/TT: 01/15/24 1135 ? Network Controller: ? Procedure Note Donotuseinterpreter, Image - [facility] [address] [place] [address] Mammography Report Signed Patient: Dorothea ZhengMR#: [id number] 49 : 1960cct:[id number] Age/Sex: 63 / FADM Date: 01/15/24 Loc: HO.MAMMO Attending Dr: Anya Castle MD Ordering Physician: Anya Salgadoesults: 1Negative Date of Service: 01/15/24Follow Up: 1 Year From Orig inal Mammogram Procedure(s): MM tomosynthesis screening BI Accession Number(s): [id number] cc: Anya Salgado MD EXAMINATION: MM SCREENING DIGITAL BREAST TOMOSYNTHESIS, BILATERAL CLINICAL INFORMATION: Screening. Asymptomatic. COMPARISON: Mammography: Comparison is made with available priors TECHNIQUE: Digital breast mammography with tomosynthesis is performed in both the craniocaudal and mediolateral oblique views along with computer-aided detection (CAD). FINDINGS: There are scattered areas of fibroglandular density (ACR BI-RADS breast composition Category b). There are no significant masses, abnormal calcifications, or other abnormalities. MM/MM tomosynthesis screening BI IMPRESSION: No mammographic evidence of malignancy. ASSESSMENT: BI-RADS BI-RADS 1 - Negative RECOMMENDATION: Routine annual mammography screening. 1 year F/U This examination should not preclude the clinical evaluation of a suspicious palpable abnormality. This patient's information was entered into a reminder system with a target due date for their next mammogram. Electronically signed by: Shraddha Porras DO 01/27/2024 12:42 PM EDT Dictated By: Shraddha Porras DO Signed By: <Electronically signed by Shraddha Porras DO in OV> 01/27/24 1242 DD/ 1120 TD/TT: 01/15/24 1135 Network Controller: us Anya Castle MD IMG BI PROCEDURES Fin al Result * (ABNORMAL) Lipid Panel, Standard (09/18/2023 3:06 PM EDT) Triglycerides 267(H) <150 mg/dL [facility] Comment:Desirable Triglyceri de: less than 150 mg/dLBorderline High Triglyceride 150-199 mg/dLHigh Triglyceride: 200-499 mg/dLVery High Triglyceride: greater than or equal to 5OO mg/dL Cholesterol 167 <200 mg/dL [facility] Comment:Desirable Cholestero l: less than 200 mg/dLBorderline High Cholesterol: 200-239 mg/dLHigh Cholesterol: greater than 239 mg/dL LDL Cholesterol Calculated 70 <100 mg/dL [facility] Comment:Desirable LDL: less than 100 mg/dLNear Optimal/Above Optimal LDL: 110- 129 mg/dLBorderline High LDL: 130-159 mg/dLHigh LDL: 160-189 mg/dLVery High LDL: greater than or equal to 190 mg/dL HDL Cholesterol 44 >40 mg/dL [facility] Comment:Desirable HDL: great er than 40 mg/dL Note: This HDL assay may give artificially low results in patients with liver disease. Blood Venous blood specimen / Unknown 09/18/2023 3:06 PM EDT 09/18/2023 4:01 PM EDT us Anya Castle MD LAB BLOOD ORDERABLES Final Result [facility] [address], [place] [phone] * Cologuard?? colon cancer screening (03/16/2023 10:25 AM EST) Cologuard Result Negative Negative 03/24/20 5:16 PM EST [facility] (CLIA #:[id number]) Comment: NEGATIVE TEST RESULT. A negative Cologuard result indicates a low likelihood that a colorectal cancer (CRC) or advanced adenoma (adenomatous polyps with more advanced pre-malignant features) ??is present. The chance that a person with a negative Cologuard test has a colorectal cancer is less than 1 in 1500 (negative predictive value >99.9%) or has an ??advanced adenoma is less than ??5.3% (negative predictive value 94.7%). These data are based on a prospective cross-sectional study of 10,000 individuals at average risk for colorectal cancer who were screened with both Cologuard and colonoscopy. (Luis Linares et al, N Engl J Med 2014;370(14):1286- 1297) The normal value (reference range) for this assay is negative. COLOGUARD RE-SCREENING RECOMMENDATION: Periodic colorectal cancer screening is an important part of preventive healthcare for asymptomatic individuals at average risk for colorectal cancer. ??Following a negative Cologuard result, the [place] [employer] and U.S. Multi-Society Task Force screening guidelines recommend a Cologuard re-screening interval of 3 years. References: [place] [employer] Guideline for Colorectal Cancer Screening: https://www.cancer.org/cancer/oztnn-teqlzm-gvxjjt/drbqgzthd-uwabshexc-jtejtlw/ac s-rec ommendations.html.; Marcos DK, Herbert MCKINNEY, Stephen PearsonK, Colorectal Cancer Screening: Recommendations for Physicians and Patients from the U.S. Multi-Society Task Force on Colorectal Cancer Screening , Am J Gastroenterology 2017; 112:9042-4946. TEST DESCRIPTION: Composite algorithmic analysis of stool DNA-biomarkers with hemoglobin immunoassay. ?? Quantitative values of individual biomarkers are not reportable and are not associated with individual biomarker result reference ranges. Cologuard is intended for colorectal cancer screening of adults of either sex, 45 years or older, who are at average-risk for colorectal cancer (CRC). Cologuard has been approved for use by the U.S. FDA. The performance of Cologuard was established in a cross sectional study of average-risk adults aged 50-84. Cologuard performance in patients ages 45 to 49 years was estimated by sub-group analysis of near-age groups. Colonoscopies performed for a positive result may find as the most clinically significant lesion: colorectal cancer [4.0%], advanced adenoma (including sessile serrated polyps greater than or equal to 1cm diameter) [20%] or non- advanced adenoma [31%]; or no colorectal neoplasia [45%]. These estimates are derived from a prospective cross-sectional screening study of 10,000 individuals at average risk for colorectal cancer who were screened with both Cologuard and colonoscopy. (Luis Vidales al, N Engl J Med 2014;370(14):5659-8105.) Cologuard may produce a false negative or false positive result (no colorectal cancer or precancerous polyp present at colonoscopy follow up). A negative Cologuard test result does not guarantee the absence of CRC or advanced adenoma (pre-cancer). The current Cologuard screening interval is every 3 years. ([place] [employer] and U.S. Multi-Society Task Force). Cologuard performance data in a 10,000 patient pivotal study using colonoscopy as the reference method can be accessed at the following location: www.[employer]/results. Additional description of the Cologuard test process, warnings and precautions can be found at www.[employer]: [employer]. Stool specimen (specimen) 03/16/2023 10:25 AM EST 03/18/2023 6:15 PM EST Anya Castle MD LAB MOLECULAR DIAGNOS TICS ORDERABLES Final Result [facility] (CLIA #:[id number]) [address] [place] [address], * HPV mRNA E6/E7 w/Reflex to HPV Genotypes 16, 18/45 (12/05/2022 12:00 AM EDT) HPV nRNA E6/E7 Not Detected Not Detected [facility] Comment:Methodology: Transcr iption-Mediated AmplificationThis assay detects E6/E7 viral messenger RNA (mRNA) from 14high-risk HPV types (16,18,31,33,35,39,45,51,52,56,58,59,66,68).Cervical sources are required for HPV testing.If a vaginal source from a patient who has had atotal hysterectomy with removal of cervix wassubmitted, please contact the testing laboratoryfor alternative testing options.For additional information, please refer tohttp://education.[employer]/faq/SXX860t7(This link if provided for information/educational purposes only.)THIS TEST WAS PERFORMED AT:[facility] [place] [phone] CASTRO MD HPV mRNA E6/E7 TNP [facility] HPV 16 RNA TNP [facility] HPV 18/45 RNA [facility] 12/05/2022 12/07/2022 8:5 0 AM EDT Anya Castle MD LAB CYTOLOGY ORDERABL ES Final Result [facility] [address] [place] [phone] * Pap Smear (12/05/2022) 12/05/2022 12/07/2022 8:5 0 AM EDT Narrative [facility] - 12/22/2022 2:12 PM EDT ----- ------- Name: Dorothea Zheng ? Age/Sex: 62/F ? : 1960 Unit#: [id number] ?? Attend Dr: Anya Salgado MD ?Re12/05/22 ?Status: DEP REF ? Location: [facility] ? Disch: ? ----- ------- SPEC : [id number] ?RECD: 12/07/22 ? STATUS: ??SOUT ? REQ NUM: [id number] ? ALKA: 12/05/22- ? SUBM DR: Anya Salgado MD ? ENTERED: ??12/07/22 ?SP TYPE: Pap Smr ?OTHR : ? ORDERED: ??Pap Smear ? Interpretation ?? Satisfactory for evaluation. ?? No endocervical cells seen. ?? Negative for intraepithelial lesion or malignancy. ?? Coccobacilli consistent with shift in vaginal ana. ? HPV mRNA E6/E7: ?NOT DETECTED ? This assay detects E6/E7 viral messenger RNA (mRNA) from 14 high-risk HPV types (16, 18, ?? 31, 33, 35, 39, 45, 51, 52, 56, 58, 59, 66, 68) ? HPV testing performed by [facility], [place], [place]. ??See reference laboratory ?? portion of the EMR for entire report. ?Clinical Information LMP: Unknown date Previous PAP test: Unknown date/findings ? Material Received ?? ThinPrep-Cervical ----- ------- Signed (signature on file) Kristan Ibrahim Brina 12/22/221411 ? ----- ------- ? END OF REPORT ? us Anya Castle MD LAB CYTOLOGY ORDERABL ES Final Result [facility] [address] [place] [phone] * Albumin, Random Urine W/O Creatinine (08/15/2022 4:31 PM EDT) Albumin, Urine <0.2 See Note: mg/dL [facility] Comment: Reference Range: Reference Range Not established MELIS[facility] Comment: The ADA defines abnormalities in albumin excretion as follows: Albuminuria Category ? Result (mcg/mg creatinine) Normal to Mildly increased ?<30 Moderately increased ?30-299 Severely increased ?> OR = 300 The ADA recommends that at least two of three specimens collected within a 3-6 month period be abnormal before considering a patient to be within a diagnostic category. Urine Urine specimen obtained by clean catch procedure / Unknown 08/15/2022 4:31 PM EDT 08/15/2022 4:31 PM EDT Narrative [facility] - 08/16/2022 6:56 PM EDT FASTING:NO FASTING: NO Anya Castle MD LAB URINE ORDERABLES Final Result [facility] [address], [facility] [place] [phone] [facility] [address] [place] [phone] from Last 3 Months or Most Recently Relevant to Health Maintenance Insurance [place] [id number] Care Teams Flue Dust Laborer Relationship Specialty Start Date End Date Anya Salgado MD [address] [place] [phone] PCP - General Family Medicine 01/31/18
--- OUTSIDE RECORDS SUMMARY | 2024-05-26 14:26 | XMS_ITS | Encounter Summary ---
Author Organization [employer] Address [address] [facility] [address] [place] [address] Care Team Providers Care Heat Treat Furnace Operator Name Role Phone Anya Salgado MD Primary Care Provide r Reason for Visit * Reason Onset Date Comments Pre-visit Planning 12/11/2023 Encounter Details Date Type Department Care Team ([facility] st Contact Info) Description 12/11/2023 Telephone [facility] [address] [place], [place] [phone] Anya Salgado MD [address] [place], [place] [phone] Pre-visit Planning Social History Tobacco Use Types Packs/Day Years Used Date Smoking Tobacco: Never Passive Smoke Exposure: Never Smokeless Tobacco: Never Alcohol Use Standard Drinks/Week Comments Not Currently 0 (1 standard drink = 0.6 oz pur e alcohol) Depression Answer Date Recorded Patient Health Questionnaire-9 Score 0 12/05/2022 Housing Stability Answer Date Recorded What is your housing situation today? I have chibereket ribeiro 06/12/[address] you [...] encounter Miscellaneous Notes * Telephone Encounter - Carlton Gonzáles - 12/11/2023 10:05 AM EDT Tc from patient returning call to complete pre -visit questions documented in this encounter Plan of Treatment Upcoming Encounters Date Type Department Care Team (Late st Contact Info) Description 05/26/2024 2:30 PM EST Office Visit [facility] [address] [place] [phone] Byron Cruz MD [address] [place] [address] Arrived 05/28/2024 10:30 AM EST Office Visit [facility] OPTOM[facility] [address] [place] [address] Dedra Garcia, OD [address] [place] [address] 06/04/2024 10:00 AM EST Office Visit [facility] ADULT DENTAL [address] [place] [phone] Teddy Shieldsaris [address] [place] [address] 07/07/2024 11:00 AM EDT Office Visit [facility] [address] [place] [address] Anya Salgado MD [address] [place] [phone] documented as of this encounter Visit Diagnoses Not on filedocumented in this encounter Additional Health Concerns Assessment Noted Time PHQ-9 Depression Total Score: 0 12/06/19 23 10:30 AM EDT documented as of this encounter Care Teams Heat Treat Furnace Operator Relationship Specialty Start Date End Date Anya Salgado MD [address] [place] [phone] PCP - General Family Medicine 01/31/18 documented as of this encounter
[2024-05-26 16:21] LABS: MANUAL DIFF FLAG NO
[2024-05-26 16:36] LABS: Basophils Percent Auto 0.6 % (0-2); Eosinophils Absolute Auto 0.1 X10*3/uL (0.0-0.4); Eosinophils Percent Auto 2.7 % (0-4); Hematocrit 40.7 % (37.0-47.0); Imm Gran Abs Auto 0.01 X10*3/uL (0.00-0.03); Imm Gran Pct Auto 0.2 % (0.0-0.4); Lymphocytes Absolute Auto 2.4 X10*3/uL (1.2-4.9); Lymphocytes Percent Auto 45.8 % (20-40); Mean Corpuscular HGB Conc 31.9 g/dl (31.0-35.0); Mean Corpuscular Volume 84.6 fL (80.0-98.0); Monocytes Absolute Auto 0.4 X10*3/uL (0.1-1.2); Monocytes Percent Auto 8.5 % (2-11); Neutrophils Absolute Auto 2.2 x10*3/uL (2.0-8.3); Neutrophils Percent Auto 42.2 % (45-73); Platelet Count 252 X10*3/uL (160-400); Red Blood Count 4.81 X10*6/uL (4.20-5.50); Red Cell Distribution Width 13.1 % (11.0-16.0); White Blood Count 5.2 X10*3/uL (4.8-10.8)
[2024-05-26 17:59] LABS: Alanine Aminotransferase 21 U/L (0-31); Albumin Level 4.3 g/dL (3.5-5.0); Alkaline Phosphatase 58 U/L (39-117); Anion Gap 10 (12-20); Aspartate Amino Transferase 24 U/L (5-31); Bilirubin Total 0.6 mg/dL (0.0-1.0); Blood Urea Nitrogen 11 mg/dL (9-16); Calcium 9.5 mg/dL (8.4-10.2); Carbon Dioxide 28 mmol/L (22-29); Chloride 106 mmol/L (96-108); Estimated Glomerular Filt Rate > 60; Glucose Random 138 mg/dL (60-115); Potassium 3.9 mmol/L (3.3-5.1); Sodium 140 mmol/L (135-145); Total Protein 8.6 g/dL (6.5-8.0)
[2024-05-26 18:17] LABS: TSH reflex Free T4 1.91 uIU/mL (0.32-4.0); Vitamin D 25-OH Total 30.5 ng/mL (>30)
== END 2024-05-26 13:21 | disposition home or self-care (01) ==
LOC: HO.HHCL 13:20
PROVIDERS: Visit Provider Internal Medicine
DX: E11.65 Type 2 diabetes mellitus with hyperglycemia (principal)
CPT/HCPCS: 36415; 80053; 82306; 84443; 85025

== ENCOUNTER 2024-07-07 12:05 | Outpatient (REF) | payer OTHER, SELFPAY | END 2024-07-07 12:06 | disposition home or self-care (01) | LOC: HO.LNP 12:05 | PROVIDERS: Visit Provider Internal Medicine | DX: R10.2 Pelvic and perineal pain (principal) | CPT/HCPCS: 87086 ==

== ENCOUNTER 2024-08-06 10:44 | Outpatient (REF) | payer OTHER, SELFPAY ==
--- NOTE | ~2024-08-06 | US_ITS ---
CLINICAL HISTORY: PELVIC AND PERINEAL PAIN US pelvis transvaginal Comparison: None Findings: Transvaginal scanning performed. The uterus is 12.5 cm in length. Multiple fibroids are noted, 3 of which are measured maximally at 4.1, 2.8 and 2.6 cm respectively. The endometrium is not well-visualized. Ovaries are not visualized. No adnexal mass identified. No free fluid. IMPRESSION: Multiple fibroids are present. Ovaries are not discretely visualized. No adnexal mass noted. No free fluid identified. This document has been electronically signed by: Peña Briggs MD on 08/08/2024 07:22:02
--- OUTSIDE RECORDS SUMMARY | 2024-08-06 12:37 | XMS_ITS | Encounter Summary ---
Author Organization [employer] Address [address] [facility] [address] [place] [address] Care Team Providers Care Real Property Appraiser Name Role Phone Anya Salgado MD Primary Care Provide r Reason for Visit * Reason Onset Date Comments CHW 06/12/2023 Encounter Details Date Type Department Care Team ([facility] st Contact Info) Description 06/12/2023 Telephone [facility] [address] [place], [place] [phone] Anya Salgado MD [address] [place], [place] [phone] CHW Social History Tobacco Use Types Packs/Day [...] Notes * Telephone Encounter - Kiet Bacon Nguyen - 06/12/2023 3:35 PM EST Tc from [...] Wednesdays, and Walk-In Urgent Care Located in [facility] of [facility]. Patient provided with after-hours line for [facility], , which offer night time triage service and option to transfer toon call provider if needed. documented in this encounter Plan of Treatment Upcoming Encounters Date Type Department Care Team (Late st Contact Info) Description 10/07/2024 10:15 AM EDT Office Visit [facility] [address] [place] [address] Anya Salgado MD [address] [place] [address] 12/07/2024 10:00 AM EDT Office Visit [facility] ADULT DENTAL [address] [place], [place] [phone] Lluvia Shields [address] [place] [address] documented as of this encounter Visit Diagnoses Not on filedocumented in this encounter Additional Health Concerns Assessment Noted Time PHQ-9 Depression Total Score: 0 12/06/19 23 10:30 AM EDT documented as of this encounter Care Teams Real Property Appraiser Relationship Specialty Start Date End Date Anya Salgado MD [address] [place] [phone] PCP - General Family Medicine 01/31/18 documented as of this encounter
--- OUTSIDE RECORDS SUMMARY | 2024-08-06 12:37 | XMS_ITS | Clinical Summary ---
Author Organization [facility] Address [address] [place] [address] [address] [place] [address] Care Team Providers Care C 40A Crew Chief Name Role Phone Anya Salgado MD Primary [...] by mouth 2 times daily. 2 Active atorvastatin (Lipitor) 40 MG tabletIndication s:Type 2 diabetes mellitus with hyperglycemia, without long-term current use of insulin (CMS/[facility]) Take 1 tablet (40 mg) by mouth [...] IN EACH EYE TWICE DAILY 3 Active lidocaine (Lidoderm) 5 % patchIndications :Muscle [...] use of insulin (CMS/HCC) Take 1 tablet (10 mg) by mouth 2 times daily. Do not crush, chew, or split. 180 tablet 3 4 Active empagliflozin (Jardiance) 25 MGIndications:Ty pe 2 diabetes mellitus with hyperglycemia, without long-term current use of insulin ([facility]) Take 1 tablet (25 mg) by mouth Once per day. 90 tablet 3 4 04/01/20 25 Active ibuprofen 800 MG tabletIndication s:Polyarthralgia Take 1 tablet (800 mg) by mouth Every 6-8 hours as needed for moderate pain. 30 tablet 4 Active SITagliptin (Januvia) 50 MG tabletIndication s:Type 2 diabetes mellitus with hyperglycemia, without long-term current use of insulin ([facility]) Take 1 tablet (50 mg) by mouth Once per day. 30 tablet 11 5 07/08/19 26 Active Active Problems Problem Noted Date Diagnosed Date Suprapubic pain 07/07/2024 Assessment & Plan (07/07/2024 2:36 PM EDT): UA and culture done I ordered pelvic ultrasound and transvaginal ultrasound I will treat her empirically for a UTI patient will be contacted with culture results Routine physical examination 05/26/2024 Assessment & Plan (05/26/2024 3:02 PM EST): Patient here for a routine physical exam requested by her work Exam today within normal limits Polyarthralgia 04/01/2024 Assessment & Plan (04/01/2024 11:57 [...] Plan (12/31/2023 3:10 PM EDT): F/u with [facility]STIGATOR [facility]ICE Chronic low back pain 05/09/2022 Chronic pain of both knees 05/09/2022 Essential hypertension 05/09/2022 Assessment & Plan (07/07/2024 2:36 PM EDT): Blood pressure seems to be under control I recommended low-sodium diet and weight reduction Continue with amlodipine 2.5 mg daily Assessment & Plan (05/26/2024 2:49 PM EST): Here for a routine physical exam BP controlled on current medication regimen Repeat BMP Assessment & Plan (04/01/2024 11:57 AM EST): [...] use of insulin 08/23/2017 Assessment & Plan (07/07/2024 2:37 PM EDT): Diabetes is: not controlled - Lab Results Component Value Date HGBA1C 8.8 (A) 07/07/2024 HGBA1C 8.5 (A) 04/01/2024 HGBA1C 8.0 (A) 12/31/2023 - Lab Results Component Value Date MICROALBUR 0.2 03/02/2022 CREATININE 0.73 05/26/2024 -Changes: Continue with glipizide 10 mg twice a day, pioglitazone 15 mg daily I added today sitagliptin 50 mg daily, patient is afraid of needles she declines GLP-1's or insulin - Diabetic eye exam: Up-to-date - Diabetic foot exam: Pending - Continue lifestyle modifications - Continue current medications - Follow up: 3 months Assessment & Plan (05/26/2024 3:03 PM EST): Diabetes is: not controlled - Lab Results Component Value Date HGBA1C 8.5 (A) 04/01/2024 HGBA1C 8.0 (A) 12/31/2023 HGBA1C 8.3 (A) 09/18/2023 - Lab Results Component Value Date MICROALBUR 0.2 03/02/2022 CREATININE 0.91 09/18/2023 Plan: as per PCP Assessment & Plan (04/01/2024 11:58 AM EST): [...] Encounters Date Type Department Care Team Description 07/27/2024 11:15 AM EDT Office Visit [facility] [address], [place] [phone] Dedra Garcia, OD Ocular hypertension, bilateral (Primary Dx) 07/27/2024 Travel 07/07/2024 11:00 AM EDT Office Visit [facility] [address] [place] [address] Anya Salgado MD Essential hypertension (Primary Dx); Type 2 diabetes mellitus with hyperglycemia, without long-term current use of insulin ([facility]); Suprapubic pain 07/07/2024 Travel 07/07/2024 Telephone [facility] [address] [place] [address] Anya Salgado MD Chart Prep 06/29/2024 Patient Outreach [facility] [address], [place] [phone] Anya Salgado MD Pre-visit Planning (SDIA screening completed on 05/07/2024) 06/04/2024 10:00 AM EST Office Visit [facility] [address] [place] [address] Lluvia Shields Dental plaque (Primary Dx); Missing teeth, acquired 05/28/2024 10:30 AM EST Office Visit [facility] [address] [place] [address] Dedra Garcia, OD 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 ([facility]/HCC) (Primary Dx); Ocular hypertension, bilateral; Pterygium of left eye; Presence of intraocular lens; Dry eyes, bilateral; Presbyopia 05/28/2024 Travel 05/26/2024 2:30 PM EST Office Visit [facility] [address] [place] [address] Byron Cruz MD Routine physical examination (Primary Dx); Type 2 diabetes mellitus with hyperglycemia, without long-term current use of insulin ([facility]); Essential hypertension 05/26/2024 Travel 05/11/2024 Telephone [facility] [address] [place] [address] Anya Salgado MD Chart Prep from Last 3 Months Immunizations Name Administration Dates Next Due Influenza Injectable Quadriv alant Preservative Free IIV4 MDCK 01/22/2020 Influenza injectable quadriv alent IIV4 with preservative 01/31/2018,04/01/2017 Influenza injectable quadriv alent preservative free 02/20/2023,02/14/2022,02/01/2021,2019 Influenza, seasonal, injecta ble, preservative free 04/01/2024 Pneumococcal Conjugate PCV 20 09/18/2023 Varicella 02/18/2016 Family History Medical History Relation Name Comments Glaucoma Brother Relation Name Status Comments Brother Social History Tobacco Use Types Packs/Day Years [...] Sign Reading Time Taken Comments Blood Pressure 130/78 07/07/2024 11:13 AM EDT Pulse 52 07/07/2024 11:13 AM EDT Temperature 36.2 ??C (97.1 ??F) 07/07/2024 11:13 AM E DT Respiratory Rate 20 07/07/2024 11:13 AM EDT Oxygen Saturation 98% 05/26/2024 2:22 PM EST Inhaled Oxygen Concentration - - Weight 82.6 kg (182 lb) 07/07/2024 11:13 AM EDT Height 157.5 cm (5' 2 ) 07/07/2024 11:13 AM EDT Body Mass Index 33.29 07/07/2024 11:13 AM EDT Plan of Treatment Upcoming Encounters Date Type Department Care Team (Late st Contact Info) Description 10/07/2024 10:15 AM EDT Office Visit [facility] [address] [place] [address] Anya Salgado MD [address] [place] [address] 12/07/2024 10:00 AM EDT Office Visit [facility] [address] [place] [address] Alyson, Lluvia [address] [place] [address] Health Maintenance Due Date Last Done Comments [...] 05/30/2024 11/27/2023, , 04/21/2019, Additional history exists Lipid Panel 09/17/2024 09/18/2023, 05/0 06/2022, 07/26/2021, Additional history exists Diabetes: Hemoglobin A1C 10/07/202407/07/2 025, 04/01/2024, 12/31/2023, Additional history exists Dental X-Ray: Bitewings 11/27/2024 11/27/19 24, 03/02/2022, 04/21/2019, Additional history exists Dental Prophylaxis 12/03/2024 06/04/2024, 0 11/27/2023, 03/02/2022, Additional history exists Alcohol/Substance Use Screening 12/30/2024 12/31/2023 Depression Screening 12/30/2024 12/31/2023, 12/31/19 24 Mammogram 01/14/2025 01/15/2024, 12/15, 01/03/2022, Additional history exists SDOH Screening 05/07/2025 05/07/2024 Tobacco Screening 07/07/2025 07/07/2024 Eye Exam 07/27/2025 07/27/2024, 07/14, 07/27/2024, Additional history exists Colorectal Cancer Screening 03/16/2026 FIT DNA/Cologuard 03/16/2026 03/16/2023 Dental X-Ray: Full Mouth 11/27/2026 11/27/2023, 06/0 04/2016 Cervical Cancer Screening 12/06/2027 HPV/Cotest 12/06/2027 12/05/2022, [...] Procedure Name Priority Date/Time Associated Diagnosis Comments AUTOMATED VISUAL FIELD, EXTENDED - OU - BOTH EYES Routine 07/27/2024 1:01 PM EDT Ocular hypertension, bilateral POCT URINALYSIS DIPSTICK Routine 07/07/2024 1:10 PM EDT Suprapubic pain CULTURE, URINE, ROUTINE Routine 07/07/2024 12:05 PM EDT Suprapubic pain POCT GLYCATED HEMOGLOBIN, TOTAL Routine 07/07/2024 11:15 AM EDT Type 2 diabetes mellitus with hyperglycemia, without long-term current use of insulin (CMS/HCC) POCT GLUCOSE Routine 07/07/2024 11:12 AM EDT Type 2 diabetes mellitus with hyperglycemia, without long-term current use of insulin (CMS/HCC) ORAL HYGIENE INSTRUCTIONS Routine 06/04/2024 10:00 AM EST Dental plaque Missing teeth, acquired PROPHYLAXIS - ADULT Routine 06/04/2024 1 0:00 AM EST Dental plaque OCT, OPTIC NERVE - OU - BOTH EYES Routine 05/28/2024 2:42 PM EST Ocular hypertension, bilateral ECG 12-LEAD Routine 05/26/2024 3:19 PM EST Essential hypertension POCT GLUCOSE Routine 05/26/2024 2:31 PM EST Type 2 diabetes mellitus with hyperglycemia, without long-term current use of insulin (CMS/HCC) TSH W/REFLEX TO FT4 Routine 05/26/2024 1 :21 PM EST Type 2 diabetes mellitus with hyperglycemia, without long-term current use of insulin (CMS/HCC) VITAMIN D,25-OH,TOTAL,IA Routine 05/26/2024 1:21 PM EST Type 2 diabetes mellitus with hyperglycemia, without long-term current use of insulin (CMS/HCC) COMPREHENSIVE METABOLIC PANEL Routine 05/26/2024 1:21 PM EST Type 2 diabetes mellitus with hyperglycemia, without long-term current use of insulin (CMS/HCC) CBC WITH AUTO DIFFERENTIAL Routine 05/26/2024 1:21 PM EST Type 2 diabetes mellitus with hyperglycemia, without long-term current use of insulin (CMS/HCC) BI MAMMOGRAM SCREENING TOMOSYNTHESIS BILATERAL Routine 01/15/2024 11:20 AM EDT INTRAORAL - COMPLETE SERIES OF RADIOGRAPHIC IMAGES Routine 11/27/2023 1:00 [...] hyperglycemia, without long-term current use of insulin ([facility]) from Last 3 Months or Most Recently Relevant to Health Maintenance Results * Automated Visual Field, Extended - OU - Both Eyes (07/27/2024 1:01 PM EDT) Dedra Bustamante, OD - 07/27/2024 1:01 PM EDT VISUAL FIELD INTERPRETATION Reason for testing: Ocular hypertension both eyes (OU) Reliability: OD: _?reliability - significant eye movement and fixation losses observed during test_ (FP: 0%, FN: 12% ) OS: _?reliability - significant eye movement and fixation losses observed during test, test duration 13:55_ (FP: 0%, FN: 0%) Statistical Indices: OD: MD: ??-0.8 dB, PSD: 2.7 dB OS: MD: ??-4.00 dB, PSD: 3.4 dB Impression: OD: 3 scattered temporal defects, no glaucomatous pattern. Baseline. OS: 2 deep defects, 3 shallow defects - all scattered inferiorly, no glaucomatous patterns. Baseline Management Plan: RTC 6 months for intraocular pressure (IOP) check Result [facility] Dedra Garcia OD OPHTH VISUAL FIELD Final Result * POCT Urinalysis (07/07/2024 1:10 PM EDT) Color, UA Yellow Clarity, UA Clear Glucose, UA Negative Bilirubin, UA Negative Ketones, UA Negative Spec Grav, UA 1.025 Blood, UA Negative Negative, None Detected pH, UA 6.0 Protein, UA Negative Urobilinogen, UA 0.2 Leukocytes, UA Trace Negative, Rare, Trace Nitrite, UA Negative Negative, None Detected Appearance, UA ye QC Media Lot # [id number] Lot# Expiration Date Urine 07/07/2024 1:10 PM EDT Result [facility] Anya Castle MD POINT OF CARE TEST EN TER/EDIT ORDERABLES Final Result * Culture, Urine, Routine (07/07/2024 12:05 PM EDT) Urine Urine specimen obtained by clean catch procedure / Unknown 07/07/2024 12:05 PM EDT 07/07/2024 5:07 PM EDT Comment:CC Narrative [facility] - 07/09/2024 11:24 AM EDT Urine Culture No growth. Specimen Source: Urine clean catch Result [facility] Anya Castle MD LAB MICROBIOLOGY - NERNJ ORDERABLES Final Result [facility] [address] [place] [phone] * (ABNORMAL) POCT HGB A1C (07/07/2024 11:15 AM EDT) Hemoglobin A1C 8.8(A) 4.0 - 6.0 % QC Media Lot # [id number] Lot# Expiration Date , Blood 07/07/2024 11:1 5 AM EDT Anya Castle MD POINT OF CARE TEST EN TER/EDIT ORDERABLES Final Result * POCT Glucose (07/07/2024 11:12 AM EDT) Only the most recent of2 resultswithin the time period is included. Glucose Blood, POC 179 60 - 200 mg/dL Comment:Fasting QC Media Lot # [id number] Lot# Expiration Date 548 Blood Capillary blood specimen / Unknown 07/07/2024 11:12 AM EDT Anya Castle MD POINT OF CARE TEST EN TER/EDIT ORDERABLES Final Result * ECG 12 lead (05/26/2024 3:19 PM EST) Narrative Byron Cruz MD - 05/26/2024 3:19 PM EST Images from the original result were not included. NSR, HR 65 BPM, No acute ST T Changes Byron Gonzáles MD ECG ORDERABLES Final Result * Vitamin D, 25-Hydroxy, Total, Immunoassay (05/26/2024 1:21 PM EST) Pathologist [facility] Vitamin D 25-OH Total 30.5 >30 ng/mL [facility] Comment:Health Based Referen ce Values*< 20 ng/mL Lyvrhkjam51-49 ng/mL Insufficient> 30 ng/mL Sufficient*Justin PASCUAL. N Engl J Med. 2007;357:266-280Care must be taken in interpreting Vitamin D results fromdifferent laboratories and methodologies. Published datademonstrated that results from patients undergoinghemodialysis may show a negative bias when tested withvarious automated 25-OH vitamin D assays when compared toLC-MS/MS.When testing samples from patients whose predominant form ofVitamin D is Vitamin D2, such as patients receiving VitaminD2 supplementation, results that are subtherapeutic shouldbe confirmed with another method such as LC-MS/MS. Blood Venous blood specimen / Unknown 05/26/2024 1:21 PM EST 05/26/2024 4:18 PM EST Anya Castle MD LAB BLOOD ORDERABLES Final Result Performing Organization Address City/[facility]/ZIP Co de Phone Number [facility] [address] [place] [phone] * TSH with Reflex to Free T4 (05/26/2024 1:21 PM EST) Pathologist [facility] TSH reflex Free T4 1.91 0.32 - 4.0 uIU/mL [facility] Blood Venous blood specimen / Unknown 05/26/2024 1:21 PM EST 05/26/2024 4:18 PM EST us Anya Castle MD LAB BLOOD ORDERABLES Final Result Performing Organization Address City/[facility] Co de Phone Number [facility] [address] [place] [phone] * (ABNORMAL) CBC auto differential (05/26/2024 1:21 PM EST) Pathologist [facility] White Blood Count 5.2 4.8 - 10.8 X10*3/uL [facility] Red Blood Count 4.81 4.20 - 5.50 X10*6/uL [facility] Hemoglobin 13.0 12.0 - 16.0 g/dl [facility] Hematocrit 40.7 37.0 - 47.0 % [facility] Mean Corpuscular Volume 84.6 80.0 - 98.0 fL [facility] Mean Corpuscular Hemoglobin 27.0 27.0 - 33.0 pg [facility] Mean Corpuscular HGB Conc 31.9 31.0 - 35.0 g/dl [facility] Red Cell Distribution Width 13.1 11.0 - 16.0 % [facility] Platelet Count 252 160 - 400 X10*3/uL [facility] Mean Platelet Volume 11.0 9.4 - 12.3 fL [facility] Neutrophils Percent Auto 42.2(L) 45 - 73 % [facility] Imm Gran Pct Auto 0.2 0.0 - 0.4 % [facility] Lymphocytes Percent Auto 45.8(H) 20 - 40 % [facility] Monocytes Percent Auto 8.5 2 - 11 % [facility] Eosinophils Percent Auto 2.7 0 - 4 % [facility] Basophils Percent Auto 0.6 0 - 2 % [facility] NRBC Pct Auto 0.0 0.0 - 0.2 /100WBC [facility] Neutrophils Absolute Auto 2.2 2.0 - 8.3 x10*3/uL [facility] Imm Gran Abs Auto 0.01 0.00 - 0.03 X10*3/uL [facility] Lymphocytes Absolute Auto 2.4 1.2 - 4.9 X10*3/uL [facility] Monocytes Absolute Auto 0.4 0.1 - 1.2 X10*3/uL [facility] Eosinophils Absolute Auto 0.1 0.0 - 0.4 X10*3/uL [facility] Basophils Absolute Auto 0.0 0.0 - 0.2 X10*3/uL [facility] NRBC Abs Auto 0.000 0.0 - 0.012 X10*3/uL [facility] Blood Venous blood specimen / Unknown 05/26/2024 1:21 PM EST 05/26/2024 4:18 PM EST us Anya Castle MD LAB BLOOD ORDERABLES Final Result [facility] [address] [place] [phone] * (ABNORMAL) Comprehensive Metabolic Panel (05/26/2024 1:21 PM EST) Sodium 140 135 - 145 mmol/L [facility] Potassium 3.9 3.3 - 5.1 mmol/L [facility] Chloride 106 96 - 108 mmol/L [facility] Carbon Dioxide 28 22 - 29 mmol/L [facility] Anion Gap 10(L) 12 - 20 [facility] Urea Nitrogen (BUN) 11 9 - 16 mg/dL [facility] Creatinine, Serum 0.73 0.5 - 1.4 mg/dL [facility] Estimated Glomerular Filt Rate >60 [facility] Comment:Chronic Kidney Disea se: Estimated GFR < 60 mL/min/1.91i5Pbfear Kidney Disease: Estimated GFR < 15 mL/min/1.73m2 Glucose 138(H) 60 - 115 mg/dL [facility] Calcium 9.5 8.4 - 10.2 mg/dL [facility] Bilirubin, Total 0.6 0.0 - 1.0 mg/dL [facility] Aspartate Amino Transferase 24 5 - 31 U/L [facility] Alanine Aminotransferase 21 0 - 31 U/L [facility] Total Protein 8.6(H) 6.5 - 8.0 g/dL [facility] Albumin Level 4.3 3.5 - 5.0 g/dL [facility] Alkaline Phosphatase 58 39 - 117 U/L [facility] Blood Venous blood specimen / Unknown 05/26/2024 1:21 PM EST 05/26/2024 4:18 PM EST us Anya Castle MD LAB BLOOD ORDERABLES Final Result [facility] [address] [place] [phone] * BI Mammogram Screening Tomosynthesis Bilateral (01/15/2024 11:20 AM EDT) Anatomical Region Laterality Modality Breast Bilateral Mammography 01/15/2024 11:2 0 AM EDT Narrative 01/27/2024 12:45 PM EDT ? [facility] ? [address] ?[place] [address] ? Mammography Report ? Signed ? Patient: Norm,Dorothea ?MR#: [id number] ?? 49 ? : 1960 ?Acct:[id number] ? Age/Sex: 63 / F ?ADM Date: 10/02/24 ? Loc: HO.MAMMO ? Attending Dr: Anya Castle MD ? Ordering Physician: Anya Salgado MD ?Results: ?? 1Negative ? Date of Service: 01/15/24 ?Follow Up: 1 Year From Orig ?? inal Mammogram ? Procedure(s): MM tomosynthesis screening BI ?? Accession Number(s): [id number] ? cc: Anya Salgado MD ? EXAMINATION: [...] DD/ 1120 ? TD/TT: 01/15/24 1135 ? Weaver Hand: ? Procedure Note [place], Image - 01/27/2024 [facility] [address] [place], [place] [address] Mammography Report Signed Patient: Dorothea ZhengMR#: [id number] 49 : 1Acct:[id number] Age/Sex: 63 / FADM Date: 01/15/24 Loc: HO.MAMMO Attending Dr: Anya Castle MD Ordering Physician: Anya Salgado MDResults: 1Negative Date of Service: 01/15/24Follow Up: 1 Year From Orig inal Mammogram Procedure(s): MM tomosynthesis screening BI Accession Number(s): [id number] cc: Anya Salgado MD EXAMINATION: MM SCREENING [...] Shraddha Porras DO 01/27/2024 12:42 PM EDT RP Dictated By: Shraddha Porras DO Signed By: <Electronically signed by Shraddha Porras DO in OV> 01/27/24 1242 DD/ 1120 TD/TT: 01/15/24 1135 Weaver Hand: us Anya Castle MD IMG BI PROCEDURES Fin al Result * (ABNORMAL) Lipid Panel, Standard (09/18/2023 3:06 PM EDT) Triglycerides 267(H) <150 mg/dL [facility] Comment:Desirable Triglyceri de: less than 150 mg/dLBorderline High Triglyceride 150-199 mg/dLHigh Triglyceride: 200-499 mg/dLVery High Triglyceride: greater than or equal to 5OO mg/dL Cholesterol 167 <200 mg/dL [facility] Comment:Desirable Cholestero l: less than 200 mg/dLBorderline High Cholesterol: 200-239 mg/dLHigh Cholesterol: greater than 239 mg/dL LDL Cholesterol Calculated 70 <100 mg/dL [facility] Comment:Desirable LDL: less than 100 mg/dLNear Optimal/Above Optimal LDL: 110- 129 mg/dLBorderline High LDL: 130-159 mg/dLHigh LDL: 160-189 mg/dLVery High LDL: greater than or equal to 190 mg/dL HDL Cholesterol 44 >40 mg/dL [facility] Comment:Desirable HDL: great er than 40 mg/dL Note: This HDL assay may give artificially low results in patients with liver disease. Blood Venous blood specimen / Unknown 09/18/2023 3:06 PM EDT 09/18/2023 4:01 PM EDT us Anya Castle MD LAB BLOOD ORDERABLES Final Result [facility] [address] [place] [phone] * Cologuard?? colon cancer screening (03/16/2023 10:25 AM EST) Pathologist [facility] Cologuard Result Negative Negative 03/24/20 5:16 PM EST [facility] (CLIA #:[id number]) Comment: NEGATIVE TEST RESULT. A negative Cologuard [...] screened with both Cologuard and colonoscopy. (Luis Baird. et al, N Engl J Med 2014;370(14):1286- 1297) The normal value (reference range) for this assay is negative. COLOGUARD RE-SCREENING RECOMMENDATION: Periodic colorectal cancer screening is an important part of preventive healthcare for asymptomatic individuals at average risk for colorectal cancer. ??Following a negative Cologuard result, the [employer] and U.S. Multi-Society Task Force screening guidelines recommend a Cologuard re-screening interval of 3 years. References: [employer] Guideline for Colorectal Cancer Screening: https://www.cancer.org/cancer/qhhim-tdrpfr-tzkzxb/klbmqhgil-yhqbrfamr-nwnacxj/ac s-rec ommendations.html.; Marcos DK, Herbert CR, Stephen PearsonK, Colorectal Cancer Screening: Recommendations for Physicians and Patients from the U.S. Multi-Society Task Force on Colorectal Cancer Screening , Am J Gastroenterology 2017; 112:2758-1478. TEST DESCRIPTION: Composite algorithmic analysis of stool [...] (Luis Vidales al, N Engl J Med 2014;370(14):4070-9278.) Cologuard may produce a false negative or false positive result (no colorectal cancer or precancerous polyp present at colonoscopy follow up). A negative Cologuard test result does not guarantee the absence of CRC or advanced adenoma (pre-cancer). The current Cologuard screening interval is every 3 years. ([employer] and U.S. Multi-Society Task Force). Cologuard performance data in a 10,000 patient pivotal study using colonoscopy as the reference method can be accessed at the following location: www.[employer]/results. Additional description of the Cologuard test process, warnings and precautions can be found at www.Check-Caprd.com. Stool specimen (specimen) 03/16/2023 10:25 AM EST 03/18/2023 6:15 PM EST us Anya Castle MD LAB MOLECULAR DIAGNOS TICS ORDERABLES Final Result [facility] (CLIA #:[id number]) [address] [place] [address], * HPV mRNA E6/E7 w/Reflex to HPV Genotypes 16, 18/45 (12/05/2022 12:00 AM EDT) HPV nRNA E6/E7 Not Detected Not Detected [facility] Comment:Methodology: Transcr iption-Mediated AmplificationThis assay detects E6/E7 viral messenger RNA (mRNA) from 14high-risk HPV types (16,18,31,33,35,39,45,51,52,56,58,59,66,68).Cervical sources are required for HPV testing.If a vaginal source from a patient who has had atotal hysterectomy with removal of cervix wassubmitted, please contact the testing laboratoryfor alternative testing options.For additional information, please refer tohttp://education.[employer]/faq/NXN547o3(This link if provided for information/educational purposes only.)THIS TEST WAS PERFORMED AT:[employer] [place] [phone] CASTRO MD HPV mRNA E6/E7 TNP [facility] HPV 16 RNA [facility] HPV 18/45 RNA [facility] 12/05/2022 12/07/2022 8:5 0 AM EDT us Anya Castle MD LAB CYTOLOGY ORDERABL ES Final Result [facility] [address] [place] [phone] * Pap Smear (12/05/2022) 12/05/2022 12/07/2022 8:5 0 AM EDT Narrative [facility] - 12/22/2022 2:12 PM EDT ----- ------- Name: Dorothea Zheng ? Age/Sex: 62/F ? : 1960 Unit#: [id number] ?? Attend Dr: Anya Salgado MD ?Re12/05/22 ?Status: DEP REF ? Location: [facility] ? Disch: ? ----- ------- SPEC : [id number] ?RECD: 12/07/22 ? STATUS: ??SOUT ? REQ NUM: [id number] ? ALKA: 12/05/22- ? SUBM DR: Anya Salgado MD ? ENTERED: ??12/07/22 ?SP TYPE: Pap Smr ?OTHR DR: ? ORDERED: ??Pap Smear ? Interpretation ?? [...] 66, 68) ? HPV testing performed by [facility], [place], [place]. ??See reference laboratory ?? portion of the EMR for entire report. ?Clinical Information LMP: Unknown date Previous PAP test: Unknown date/findings ? Material Received ?? ThinPrep-Cervical ----- ------- Signed (signature on file) Kristan Patrice Gonsalves 12/22/221411 ? ----- ------- ? END OF REPORT ? us Anya Castle MD LAB CYTOLOGY ORDERABL ES Final Result [facility] [address] [place] [address] [phone] * Albumin, Random Urine W/O Creatinine (08/15/2022 4:31 PM EDT) Albumin, Urine <0.2 See Note: mg/dL [facility] [place] [facility] Comment: Reference Range: Reference Range Not established [facility] [place] [facility] Comment: The ADA defines abnormalities in albumin [...] LAB URINE ORDERABLES Final Result [facility] [address], [place] [address] [facility] [place] [facility] [address] [place] [address] from Last 3 Months or Most Recently Relevant to Health Maintenance Insurance DENTAL - [facility] Care Teams C 40A Crew Chief Relationship Specialty Start Date End Date Anya Salgado MD [address] [place] [id number] PCP - General Family Medicine 01/31/18
--- OUTSIDE RECORDS SUMMARY | 2024-08-06 12:37 | XMS_ITS | Encounter Summary ---
Author Organization [employer] Address [address] [facility] 7t [place] [address] Care Team Providers Care Document Clerk Name Role Phone Anya Salgado MD Primary Care Provide r Reason for Visit * Reason Onset Date Comments Med Refill 03/19/2024 Encounter Details Date Type Department Care Team (Late st Contact Info) Description 03/19/2024 Telephone [facility] MEDICINE [address] [place], [place] [phone] Anya Salgado MD [address] [place], [place] [phone] Med Refill Social History Tobacco Use Types [...] 2.5 MG tablet To be sent to: [facility] - [place], [place] - [address] [facility] documented in this encounter Plan of Treatment Upcoming Encounters Date Type Department Care Team (Late st Contact Info) Description 10/07/2024 10:15 AM EDT Office Visit [facility] MEDICINE [address] [place] [address] Anya Salgado MD [address] [place] [address] 12/07/2024 10:00 AM EDT Office Visit [facility] ADULT DENTAL [address] [place], [place] [phone] Lluvia Shields [address] [place] [address] documented as of this encounter Visit Diagnoses Not on filedocumented in this encounter Additional Health Concerns Assessment Noted Time PHQ-9 Depression Total Score: 0 12/31/19 24 10:55 AM EDT documented as of this encounter Care Teams Document Clerk Relationship Specialty Start Date End Date Anya Salgado MD [address] [place] [address] PCP - General Family Medicine 01/31/18 documented as of this encounter
--- OUTSIDE RECORDS SUMMARY | 2024-08-06 12:37 | XMS_ITS | Encounter Summary ---
Author Organization [employer] Address [address] [facility] 7t [place] [address] Care Team Providers Care Senior Engineering Specialist Name Role Phone Anya Salgado MD Primary Care Provide r Reason for Visit * Reason Onset Date Comments Pre-visit Planning 12/11/2023 Encounter Details Date Type Department Care Team ([facility] st Contact Info) Description 12/11/2023 Telephone [facility] MEDICINE [address] [place], [place] [phone] Anya Salgado MD 230 [place], [place] [phone] Pre-visit Planning Social History Tobacco Use Types [...] Description 10/07/2024 10:15 AM EDT Office Visit [facility] MEDICINE [address] [place] [address] Anya Salgado MD [address] [place] [address] 12/07/2024 10:00 AM EDT Office Visit [facility] ADULT DENTAL [address] [place] [address] Lluvia Shields [address] [place] [address] documented as of this encounter Visit Diagnoses Not on filedocumented in this encounter Additional Health Concerns Assessment Noted Time PHQ-9 Depression Total Score: 0 12/06/19 23 10:30 AM EDT documented as of this encounter Care Teams Senior Engineering Specialist Relationship Specialty Start Date End Date Anya Salgado MD [address] [place] [phone] PCP - General Family Medicine 01/31/18 documented as of this encounter
--- OUTSIDE RECORDS SUMMARY | 2024-08-06 12:37 | XMS_ITS | Clinical Summary ---
Author Organization [address] [facility] Address [address] [place] [address] Phone Care Team Providers Care Director Of Field Coordination Name Role Phone Catia Bernal MD Primary Care Provider [phone] Allergies No known active allergies Medications acetaminophen (TYLENOL 8 HOUR) 650 mg 8 hr tablet TAKE 1 TABLET BY MOUTH EVERY 8 HOURS NEEDED FOR PAIN. DO NOT BREAK, CRUSH, DISSOLVE OR CHEW. Active glipiZIDE (GLUCOTROL XL) 10 mg 24 hr tablet Take 1 tablet (10 mg total) by mouth 2 times daily. 04/01/2024 Active gabapentin (NEURONTIN) 100 mg capsule Take 1 capsule (100 mg total) by mouth 2 times daily. 09/15/2021 Active atorvastatin (LIPITOR) 40 mg tablet Take 1 tablet (40 mg total) by mouth daily. 08/17/2022 Active amLODIPine (NORVASC) 2.5 mg tablet Take 1 tablet (2.5 mg total) by mouth 1 (one) time each day in the morning. 03/19/2024 Active alcohol swabs (Alcohol Prep Pads) pads, medicated 2 (two) times a day. 09/15/2021 Active hydrOXYzine HCL (ATARAX) 25 mg tablet Take 1 tablet (25 mg total) by mouth 3 times daily as needed. 12/05/2022 Active Januvia 50 mg tablet Take 1 tablet (50 mg total) by mouth daily. 07/07/2024 07/08/19 26 Active famotidine (Pepcid) 40 mg tablet Take 1 tablet (40 mg total) by mouth 2 (two) times a day. 60 each 2 07/22/2024 10/21/19 25 Active Encounters Date Type Department Care Team Description 07/22/2024 4:06 PM EDT - 07/22/2024 11:59 PM EDT Hospital Encounter [facility] Xray [address] [place] [phone] Left inguinal pain; Pain of left hip Discharge Disposition: Home or Self Care 07/22/2024 3:15 PM EDT Office Visit [facility] - [place] [address] [phone] Catia Bernal MD Left inguinal pain (Primary Dx); Foot pain, right; Pain of left hip; Plantar fasciitis of right foot; Gastroesophageal reflux disease, unspecified whether esophagitis present from Last 3 Months Social History Tobacco Use Types Packs/Day Years Used Date Smoking Tobacco: Never Assessed Comments Unknown Sex and Gender Information Value Date Recorded Sex Assigned at Not on file Legal Sex Female 2:24 PM EST Gender Identity Not on file Sexual Orientation Not on file Last Filed Vital Signs Vital Sign Reading Time Taken Comments Blood Pressure 132/76 07/22/2024 3:14 PM EDT Pulse 74 07/22/2024 3:14 PM EDT Temperature - - Respiratory Rate - - Oxygen Saturation 99% 07/22/2024 3:14 PM EDT Inhaled Oxygen Concentration - - Weight 83 kg (183 lb) 07/22/2024 3:14 PM EDT Height - - Body Mass Index - - Plan of Treatment Upcoming Encounters Date Type Department Care Team (Late st Contact Info) Description 12/02/2024 9:15 AM EDT Office Visit Internal Medicine - [place] [address] [phone] Catia Bernal MD [address] [address] Health Maintenance Due Date Last Done Comments Breast Cancer Screening 1960 Diabetes: Annual Foot Exam 1971 Diabetes: Annual Retina Eye Exam 1971 DTaP,Tdap,and Td Vaccines (1 - Tdap) 1980 Hepatitis A Vaccines (1 of 2 - Risk 2-dose series) 1980 Zoster Vaccines (1 of 2) 04/14/2016 02/18/2016 Hepatitis B Vaccines (1 of 3 - Risk 3-dose series) 2021 RSV Immunization Adult Patients (1 - Risk 60-74 years 1-dose series) 2021 HIV Screening 03/14/2022 Hepatitis C Screening 03/14/2022 Social Influencers of Health Screening 03/14/2022 COVID-19 Vaccine ( season) 2023 02/14/2022, 05/03/2021, 07/18/2020, Additional history exists Diabetes: Annual Urine Albumin-Creatinine Ratio (uACR) 07/23/2024 08/15/2022 Depression Screening 12/30/2024 12/31/2023 Diabetes: Blood Sugar Control Test (HGBA1C) 01/07/2025 07/07/2024 Diabetes: Annual GFR (Glomerular Filtration Rate) 05/26/2025 05/26/2024 Hypertension/CHF/CAD Annual BMP Blood Test 05/26/2025 05/26/2024 Cervical Cancer Screening: Pap Smear 12/05/2025 12/05/2022 Colorectal Cancer Screening: FIT-DNA (Cologuard) 03/16/2026 03/16/2023 Cholesterol Screening (Lipid Panel) 09/17/2028 09/18/2023 Varicella Vaccines Aged Out 02/18/2016 No longer eligible based on patient's age to complete this topic Pneumococcal Vaccine: 50+ Years Completed 09/18/2023 Pneumococcal Vaccine: Pediatrics (0 to 5 Years) and At-Risk Patients (6 to 64 Years) Aged Out 09/18/2023 No longer eligible based on patient's age to complete this topic Influenza Vaccine Completed 04/01/2024, , 02/14/2022, Additional [...] age to complete this topic Meningococcal B Vaccine Aged Out No l onger eligible based on patient's age to complete this topic RSV Immunization Patients Under 20 months Aged Out No longer eligible based on patient's age to complete this topic Procedures Procedure Name Priority Date/Time Associated Diagnosis Comments XR HIPS 5+ VIEWS WO OR W PELVIS BILAT Routine 07/22/2024 4:20 PM EDT Left inguinal pain Pain of left hip from Last 3 Months Results * XR Hips 5+ Views wo or w Pelvis bilat (07/22/2024 4:20 PM EDT) Anatomical Region Laterality Modality Lower Extremities, Hip Bilateral Radiograp hic Imaging 07/23/2024 8:54 AM EDT Impressions 07/23/2024 8:55 AM EDT Normal examination of his bilaterally. There is a 3.9 x 3.0 cm calcified uterine leiomyoma. Code 78084 -------- FINAL REPORT -------- Dictated By: Michael Mtz Dictated Date: 07/23/2024 08:54 ET Assigned Physician: Michael Mtz Reviewed and Electronically Signed By: Michael Mtz Signed Date: 07/23/2024 08:55 ET Workstation ID: [id number] Transcribed By: Self Edit Transcribed Date: 07/23/2024 08:54 ET Narrative 07/23/2024 8:55 AM EDT HISTORY: The patient is a 64-year-old female with bilateral hip pain, nontraumatic. FINDINGS: AP radiograph of the pelvis, along with coned-down AP and external rotation-abduction views of the right hip and coned-down AP and external rotation-abduction views of the left hip, are obtained. The study demonstrates no fracture, dislocation, arthritic change, osteolytic or osteoblastic lesion, or other bony abnormality. There is an irregular oval coarse calcification in the right side of the pelvis measuring 3.9 x 3.0 cm, highly consistent with a uterine leiomyoma. Procedure Note Mcihael Mtz MD - 07/23/2024 HISTORY: The patient is a 64-year-old female with bilateral hip pain,nontraumatic. FINDINGS: AP radiograph of the pelvis, along with coned-down AP andexternal rotation-abduction views of the right hip and coned-down AP andexternal rotation-abduction views of the left hip, are obtained. The studydemonstrates no fracture, dislocation, arthritic change, osteolytic orosteoblastic lesion, or other bony abnormality. There is an irregular ovalcoarse calcification in the right side of the pelvis measuring 3.9 x 3.0cm, highly consistent with a uterine leiomyoma. IMPRESSION: Normal examination of his bilaterally. There is a 3.9 x 3.0 cm calcifieduterine leiomyoma. Code 38692 -------- FINAL REPORT -------- Dictated By: Michael Mtz Dictated Date: 07/23/2024 08:54 ET Assigned Physician: Michael Mtz Reviewed and Electronically Signed By: Michael Mtz Signed Date: 07/23/2024 08:55 ET Workstation ID: [id number] Transcribed By: Self Edit Transcribed Date: 07/23/2024 08:54 ET Catia Bernal MD IMG XR PROCEDURES Final Result from Last 3 Months Insurance [address] [place] [address] Care Teams Director Of Field Coordination Relationship Specialty Start Date End Date Catai Bernal MD 175 [facility] [address] [place], [place] [phone] PCP - General Internal Medicine 07/16/24
--- OUTSIDE RECORDS SUMMARY | 2024-08-06 12:37 | XMS_ITS | Encounter Summary ---
Author Organization [employer] Address [address] [facility] 7 [place] [address] Care Team Providers Care Hearing Aid Assistant Name Role Phone Anya Salgado MD Primary Care Provide r Encounter Details Date Type Department Care Team (Latest Contact Info) Description 03/02/2022 Abstract [facility] CONVERSIONS Dental, Provider, DDS Social [...] Description 10/07/2024 10:15 AM EDT Office Visit [facility] MEDICINE [address] [place] [address] Anya Salgado MD [address] [place] [address] 12/07/2024 10:00 AM EDT Office Visit [facility] ADULT DENTAL [address] [place] [address] Lluvia Shields [address] [place] [address] documented as of this encounter Visit Diagnoses Not on filedocumented in this encounter Care Teams Hearing Aid Assistant Relationship Specialty Start Date End Date Anya Salgado MD [address] [place] [address] PCP - General Family Medicine 01/31/18 documented as of this encounter
--- OUTSIDE RECORDS SUMMARY | 2024-08-06 12:37 | XMS_ITS | Encounter Summary ---
Author Organization [employer] Address [address] [place] [address] 7 [place] [address] Care Team Providers Care Lumber Estimator Name Role Phone Anya Salgado MD Primary Care Provide r Encounter Details Date Type Department Care Team (Latest Contact Info) Description 04/21/2019 Abstract [facility] CONVERSIONS Dental, Provider, DDS Social History [...] 10/07/2024 10:15 AM EDT Office Visit [facility] MEDICINE [address] [place] [address] Anya Salgado MD [address] [place] [address] 12/07/2024 10:00 AM EDT Office Visit [facility] ADULT DENTAL [address] [place] [address] Lluvia Shields [address] [place] [address] documented as of this encounter Visit Diagnoses Not on filedocumented in this encounter Care Teams Lumber Estimator Relationship Specialty Start Date End Date Anya Salgado MD [address] [place] [address] PCP - General Family Medicine 01/31/18 documented as of this encounter
== END 2024-08-06 10:45 | disposition home or self-care (01) ==
LOC: HO.US 10:44
PROVIDERS: PCP Internal Medicine; Visit Provider Internal Medicine
DX: R10.2 Pelvic and perineal pain (principal)
CPT/HCPCS: 76830; 76856

== ENCOUNTER → 2024-08-06 10:55 | Outpatient (BNV) | payer OTHER, SELFPAY | PROVIDERS: PCP Internal Medicine; Visit Provider Radiology Vascular & Interventional Radiology | DX: R10.2 Pelvic and perineal pain (principal) | CPT/HCPCS: 76830; 76856 ==

== ENCOUNTER 2025-01-19 11:03 | Outpatient (REF) | payer OTHER, SELFPAY ==
--- OUTSIDE RECORDS SUMMARY | 2025-01-19 13:43 | XMS_ITS | Encounter Summary ---
Author Organization [facility] Address [address] [place] [address] Care Team Providers Care Car Construction Superintendent Name Role Phone Catia Bernal MD Primary Care Provider [phone] Encounter Details Date Type Department Care Team (Late Contact Info) Description 01/12/2025 Results Follow-Up Internal Medicine - [place] [address] [phone] Catia Bernal MD [address] [phone] Social History Tobacco Use Types Packs/Day Years Used Date Smoking Tobacco: Never Smokeless Tobacco: Never Alcohol Use Standard Drinks/Week Comments Not Currently 0 (1 standard drink = 0.6 oz pur e alcohol) Education Answer Date Recorded What is the highest level of school you have completed or the highest degree you have received? High school graduate 12/02/2024 Comments Unknown Sex and Gender Information Value Date Recorded Sex Assigned at Female 12/03/2024 12:42 PM EDT Legal Sex Female 2:24 PM EST Gender Identity Female 12/03/2024 12:42 PM EDT Sexual Orientation Straight 12/03/2024 12 :42 PM EDT documented as of this encounter Plan of Treatment Upcoming Encounters Date Type Department Care Team (Late Contact Info) Description 02/22/2025 9:00 AM EST Appointment [facility] Endoscopy [address] [place] [phone] Everett Love DO 175 [facility] [address] [place] [address] 02/23/2025 8:30 AM EST Medication Management Adult Medicine [facility] [address] [place] [address] Ana Mazariegos PharmD [address] [place] [address] documented as of this encounter Visit Diagnoses Not on filedocumented in this encounter Care Teams Car Construction Superintendent Relationship Specialty Start Date End Date Catia Bernal MD 175 [facility] [address] [place] [phone] PCP - General Internal Medicine 07/16/24 documented as of this encounter
--- OUTSIDE RECORDS SUMMARY | 2025-01-19 13:43 | XMS_ITS | Encounter Summary ---
Author Organization [employer] Address [address] [facility] [address] [place] [address] Care Team Providers Care White Metal Caster Name Role Phone Anya Salgado MD Primary Care Provide r Encounter Details Date Type Department Care Team (Latest Contact Info) Description 03/02/2022 Abstract [facility] CONVERSIONS Dental, Provider, DDS Social History [...] Upcoming Encounters Date Type Department Care Team ( st Contact Info) Description 01/26/2025 9:15 AM EDT Office Visit [facility] OPTOMETRY [address] [place] [address] Dedra Garcia, OD [address] [place] [address] 06/14/2025 10:00 AM EST Office Visit [facility] ADULT DENTAL [address] [place] [address] Alyson, Lluvia [address] [place] [address] documented as of this encounter Visit Diagnoses Not on filedocumented in this encounter Care Teams White Metal Caster Relationship Specialty Start Date End Date Anya Salgado MD [address] [place] [address] PCP - General Family Medicine 01/31/18 documented as of this encounter
--- OUTSIDE RECORDS SUMMARY | 2025-01-19 13:43 | XMS_ITS | Clinical Summary ---
Author Organization [employer] Address [address] [facility] 7t [place] [address] Care Team Providers Care Roof Shingler Name Role Phone Anya Salgado MD Primary Care Provide r Allergies Active Allergy Reactions Criticality Noted Date Comments Metformin 03/23/2020 Other reaction(s): GI Problems Pregabalin 08/22/2016 Other reaction(s): Very sleepy Valacyclovir High 08/09/2017 Other reaction(s): White patches on the skin Medications Alcohol Swabs (Alcohol Prep) 70 % pads USE TWICE DAILY 09/16/19 22 Active Blood Pressure Monitoring (Omron 3 Series BP Monitor) device USE TO CHECK BLOOD PRESSURE DAILY 09/16/19 22 Active cyclobenzaprine (Flexeril) 5 MG tablet Take 5 mg by mouth 3 times daily. 07/22/19 22 Active gabapentin (Neurontin) 100 MG capsule Take 100 mg by mouth 2 times daily. 09/16/19 22 Active FREESTYLE LITE test strip TEST BLOOD SUGAR TWICE DAILY 09/16/19 22 Active TRUEplus Lancets 33G misc TEST BLOOD SUGAR TWICE DAILY 09/16/19 22 Active atorvastatin (Lipitor) 40 MG tabletIndicatio ns:Type 2 diabetes mellitus with hyperglycemia, without long-term current use of insulin (HCC) Take 1 tablet (40 mg) by mouth in the morning. 30 tablet 11 08/18/19 23 Active pantoprazole (ProtoNix) 40 MG EC tabletIndicatio ns:Gastroesopha geal reflux disease without esophagitis Take 1 tablet (40 mg) by mouth in the morning. 90 tablet 1 11/10/19 23 Active hydrOXYzine HCl (Atarax) 25 MG tabletIndicatio ns:Pruritus Take 1 tablet (25 mg) by mouth if needed in the morning, at noon, and at bedtime for itching. 90 tablet 12/06/19 23 Active acetaminophen (Tylenol 8 Hour) 650 MG ER tabletIndicatio ns:Neck pain,Acute pain of right shoulder Take 2 tablets (1,300 mg) by mouth every 8 (eight) hours. 30 tablet 2 02/21/20 23 Active lidocaine (Lidoderm) 5 % patchIndication s:Muscle spasm of shoulder region APPLY 1 PATCH TOPICALLY TO SKIN IN THE MORNING. LEAVE ON FOR 12 HOURS AND OFF FOR 12 HOURS DIRECTED 30 patch 1 07/15/19 24 Active cholecalciferol (Vitamin D-3) 25 MCG tabletIndicatio ns:Vitamin D deficiency TAKE 1 TABLET BY MOUTH ONCE DAILY 90 tablet 1 12/11/19 24 Active amLODIPine (Norvasc) 2.5 MG tablet TAKE 1 TABLET BY MOUTH EVERY MORNING 90 tablet 3 03/19/20 24 Active pioglitazone (Actos) 15 MG tabletIndicatio ns:Type 2 diabetes mellitus with hyperglycemia, without long-term current use of insulin (HCC) Take 1 tablet (15 mg) by mouth Once per day. 90 tablet 1 04/01/20 24 025 Active glipiZIDE XL (Glucotrol XL) 10 MG 24 hr tabletIndicatio ns:Type 2 diabetes mellitus with hyperglycemia, without long-term current use of insulin (HCC) Take 1 tablet (10 mg) by mouth 2 times daily. Do not crush, chew, or split. 180 tablet 3 04/01/20 24 Active empagliflozin (Jardiance) 25 MGIndications:T ype 2 diabetes mellitus with hyperglycemia, without long-term current use of insulin (HCC) Take 1 tablet (25 mg) by mouth Once per day. 90 tablet 3 04/01/20 24 025 Active ibuprofen 800 MG tabletIndicatio ns:Polyarthralg ia Take 1 tablet (800 mg) by mouth Every 6-8 hours as needed for moderate pain. 30 tablet 04/01/20 24 Active cholecalciferol (Vitamin D-3) 25 MCG (1000 UT) tabletIndicatio ns:Vitamin D deficiency Take 1 tablet (25 mcg) by mouth Once per day. 60 tablet 1 12/30/19 Active ipratropium (Atrovent) 0.06 % nasal spray SPRAY 2 SPRAYS IN EACH NOSTRIL THREE TIMES DAILY NEEDED 09/01/19 025 Discontinued ketoconazole (NIZOral) 2 % cream APPLY TO THE AFFECTED AREA(S) EVERY DAY 09/16/19 025 Discontinued Multiple Vitamin (Multi-Vitamin) tablet Take 1 tablet by mouth at bed time. 03/23/20 025 Discontinued ondansetron (Zofran) 4 MG tablet Take 8 mg by mouth 2 times daily. 09/16/19 025 Discontinued brimonidine (AlphaGAN P) 0.2 % ophthalmic solution INSTILL 1 DROP IN EACH EYE TWICE DAILY 03/19/20 23 025 Discontinued SITagliptin (Januvia) 50 MG tabletIndicatio ns:Type 2 diabetes mellitus with hyperglycemia, without long-term current use of insulin (HCC) Take 1 tablet (50 mg) by mouth Once per day. 30 tablet 11 07/08/19 25 025 Discontinued Active Problems Problem Noted Date Diagnosed Date Vitamin D deficiency 12/29/2024 Fatigue 12/29/2024 Assessment & Plan (12/29/2024 11:34 AM EDT): Blood work ordered patient will be contacted with results H. 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 Chronic low back pain 05/09/2022 Chronic pain of both knees 05/09/2022 Essential hypertension 05/09/2022 Assessment & Plan (12/29/2024 11:32 AM EDT): Low-sodium diet continue to take her medication every day without missing any dose Assessment & Plan (07/07/2024 2:36 PM EDT): [...] use of insulin 08/23/2017 Assessment & Plan (12/29/2024 11:33 AM EDT): Glucose has improved today is 100 she has been telling me her glucose in the morning is around the 100s, her medication was changed sitagliptin was discontinued she finally accepted injectable GLP-1 she is now on Victoza continue with glipizide 10 mg daily pioglitazone 15 mg daily and Jardiance 25 mg daily Assessment & Plan (07/07/2024 2:37 PM EDT): [...] Encounters Date Type Department Care Team Description 12/29/2024 9:00 AM EDT Office Visit [facility] [address] [place] [address] Anya Salgado MD Type 2 diabetes mellitus with hyperglycemia, without long-term current use of insulin ([facility]) (Primary Dx); Vitamin D deficiency; Essential hypertension; Chronic fatigue; H. pylori infection 12/29/2024 Travel 12/28/2024 Telephone [facility] [address] [place] [address] Anya Salgado MD Chart prep 12/25/2024 Telephone [facility] [address] [place] [phone] Anya Salgado MD 12/07/2024 10:00 AM EDT Office Visit [facility] [address] [place] [phone] Lluvia Shields Dental plaque (Primary Dx); Missing teeth, acquired; Encounter for dental examination from Last 3 Months Immunizations Immunization Administration Dates Next Due Influenza Injectable Quadriv [...] Answer Date Recorded Patient Health Questionnaire-9 Score 3 12/29/2024 Patient Health Questionnaire-9 Score 3 12/29/2024 Last PHQ-9: Questionnaire Data Not on file 0 12/29/2024 Housing Stability Answer Date Recorded What is [...] Date Recorded Patient Health Questionnaire-2 Score 0 12/29/2024 Internet Access Answer Date Recorded Internet Access [...] Sign Reading Time Taken Comments Blood Pressure 128/82 12/29/2024 9:09 AM EDT Pulse 72 12/29/2024 9:09 AM EDT Temperature 36.4 C (97.5 F) 12/29/2024 9:09 AM EDT Respiratory Rate 25 12/29/2024 9:09 AM EDT Oxygen Saturation 98% 12/29/2024 9:09 AM EDT Inhaled Oxygen Concentration - - Weight 85.2 kg (187 lb 12.8 oz) 12/29/2024 9:09 AM EDT Height 157.5 cm (5' 2 ) 12/29/2024 9:09 AM EDT Body Mass Index 34.35 12/29/2024 9:09 AM EDT Plan of Treatment Upcoming Encounters Date Type Department Care Team (Late st Contact Info) Description 01/26/2025 9:15 AM EDT Office Visit [facility] [address] [place] [address] ValekaDedra, OD [address] [place] [address] 06/14/2025 10:00 AM EST Office Visit [facility] [address] [place] [address] Alyson, Lluvia [address] [place] [address] Health Maintenance Due Date Last Done Comments CT Colonography 1960 Colonoscopy 1960 FIT 1961 HIV Screening 1960 Sigmoidoscopy 1960 Disability Screening 1961 Diabetes: Foot Exam 1971 Alcohol/Substance Use Screening 1973 Hepatitis C Screening 1979 DTaP/Tdap/Td Vaccines (1 - Tdap) 1980 Hepatitis A Vaccines (1 of 2 - Risk 2-dose series) 1980 Zoster Vaccines (1 of 2) 04/14/2016 Hepatitis B Vaccines (1 of 3 - Risk 3-dose series) 2021 RSV Patients and Patients Aged 60 years or older (1 - Risk 60-74 years 1-dose series) 2021 FOBT 03/16/2024 03/16/2023 Lipid Panel 09/17/2024 09/18/2023, 05/0 06/2022, 07/26/2021, Additional history exists COVID-19 Vaccine ( season) 2024 02/14/2022, 05/03/2021, 07/18/2020, Additional history exists Influenza Vaccine (#1) 2024 , 02/20/2023, 02/14/2022, Additional history exists Mammogram 01/14/2025 01/15/2024, 12/15, 01/03/2022, Additional history exists Diabetes: Hemoglobin A1C 03/11/2025 025, 07/07/2024, 04/01/2024, Additional history exists SDOH Screening 05/07/2025 05/07/2024 Dental Oral Exam 06/10/2025 12/07/2024, , 03/02/2022, Additional history exists Dental Prophylaxis 06/10/2025 12/07/2024, 0 06/04/2024, 11/27/2023, Additional history exists Eye Exam 07/27/2025 07/27/2024, 07/14, 07/27/2024, Additional history exists Dental X-Ray: Bitewings 12/08/2025 12/08/19 25, 11/27/2023, 03/02/2022, Additional history exists Diabetes: Urine Protein Screening 12/09/2025 12/09/2024, 08/15/2022, 03/02/2022, Additional history exists Depression Screening 12/29/2025 12/29/2024, 12/30/19 Tobacco Screening 12/29/2025 12/29/2024 Colorectal Cancer Screening 03/16/2026 FIT DNA/Cologuard 03/16/2026 03/16/2023 Dental X-Ray: Full Mouth 11/27/2026 11/27/2023, 06/04/2016 Cervical Cancer Screening 12/06/2027 HPV/Cotest 12/06/2027 12/05/2022, 11/13, 10/19/2016 Pap Smear 12/06/2027 12/05/2022 Pneumococcal Vaccine: 50+ Years Completed 09/18/2023 HIB Vaccines Aged Out No longer eligi [...] Name Priority Date/Time Associated Diagnosis Comments POCT GLUCOSE Routine 12/29/2024 9:31 AM EDT Type 2 diabetes mellitus with hyperglycemia, without long-term current use of insulin ([facility]) COMPREHENSIVE PERIODONTAL EVALUATION - NEW OR ESTABLISHED PATIENT Routine 12/07/2024 10:00 AM EDT PERIODIC ORAL EVALUATION - ESTABLISHED PATIENT Routine 12/07/2024 10:00 AM EDT ORAL HYGIENE INSTRUCTIONS Routine 12/07/2024 10:00 AM EDT Dental plaque Missing teeth, acquired PROPHYLAXIS - ADULT Routine 12/07/2024 1 0:00 AM EDT Dental plaque Missing teeth, acquired INTRAORAL - PERIAPICAL EACH ADDITIONAL RADIOGRAPHIC IMAGE Routine 12/07/2024 10:00 AM EDT Dental plaque Missing teeth, acquired INTRAORAL - PERIAPICAL FIRST RADIOGRAPHIC IMAGE Routine 12/07/2024 10:00 AM EDT Dental plaque Missing teeth, acquired BITEWINGS - 4 RADIOGRAPHIC IMAGES Routine 12/07/2024 10:00 AM EDT Dental plaque Missing teeth, acquired 1 EXTRACTION Routine 12/07/2024 12:00 AM EDT POCT GLYCATED HEMOGLOBIN, TOTAL Routine 07/07/2024 11:15 AM EDT Type 2 diabetes mellitus with hyperglycemia, without long-term current use of insulin ([facility]) BI MAMMOGRAM SCREENING TOMOSYNTHESIS BILATERAL Routine 01/15/2024 11:20 AM EDT INTRAORAL - COMPLETE SERIES OF RADIOGRAPHIC IMAGES Routine 11/27/2023 1:00 PM EDT LIPID PANEL, STANDARD Routine 09/18/2023 3:06 PM EDT Health care maintenance LAB COLOGUARD COLON CANCER SCREEN Routine 03/16/2023 10:25 AM EST Colon cancer screening HPV MRNA E6/E7 REFLEX TO HPV 16, 18/45 Routine 12/05/2022 12:00 AM EDT PAP SMEAR Routine 12/05/2022 ALBUMIN, RANDOM URINE W/O CREATININE Routine 08/15/2022 4:31 PM EDT Type 2 diabetes mellitus with hyperglycemia, without long-term current use of insulin ([facility]) from Last 3 Months or Most Recently Relevant to Health Maintenance Results * POCT Glucose (12/29/2024 9:31 AM EDT) Glucose Blood, POC 100 60 - 200 mg/dL QC Media Lot # [id number] Lot# Expiration Date [id number] Blood Capillary blood specimen / Unknown 12/29/2024 9:31 AM EDT Anya Castle MD POINT OF CARE TEST EN TER/EDIT ORDERABLES Final Result * (ABNORMAL) POCT HGB A1C (07/07/2024 11:15 [...] AM EDT Narrative 01/27/2024 12:45 PM EDT [facility] [address] [place] [address] Dr. Ortiz, ELLY [address] Mammography Report Signed Patient: Dorothea Zheng MR#: [id number] 48 : 1960 Acct:[id number] Age/Sex: 63 / F ADM Date: 01/15/24 Loc: HO.MAMMO Attending Dr: Anya Castle MD Ordering Physician: Anya Salgado MD Results: 1Negative Date of Service: 01/15/24 Follow Up: 1 Year From Orig inal Mammogram Procedure(s): MM tomosynthesis screening BI Accession Number(s): [id number] cc: Anya Salgado MD EXAMINATION: MM SCREENING [...] 01/27/24 1242 DD/ 1120 TD/TT: 01/15/24 1135 Partition Making Machine Operator: Procedure Note Donotuseinterpreter, Image - 01/27/2024 [facility] [address] [place] [address] Mammography Report Signed Patient: Dorothea ZhengMR#: [id number] 48 : 1960cct:[id number] Age/Sex: 63 / FADM Date: 01/15/24 Loc: MAMMO Attending Dr: Anya Castle MD Ordering Physician: Anya Salgado MDResults: 1Negative Date of Service: 10/02/24Follow Up: 1 Year From Orig inal Mammogram Procedure(s): MM tomosynthesis screening BI Accession Number(s): [id number] cc: Anya Salgado MD EXAMINATION: MM SCREENING [...] 01/27/24 1242 DD/ 1120 TD/TT: 01/15/24 1135 Partition Making Machine Operator: Anya Castle MD IMG BI PROCEDURES Fin al Result * (ABNORMAL) Lipid Panel, Standard (09/18/2023 3:06 PM EDT) Triglycerides 267(H) <150 mg/dL [facility] Comment:Desirable Triglyceri de: less than 150 mg/dLBorderline High Triglyceride 150-199 mg/dLHigh Triglyceride: 200-499 mg/dLVery High Triglyceride: greater than or equal to 5OO mg/dL Cholesterol 167 <200 mg/dL [facility] Comment:Desirable Cholestero l: less than 200 mg/dLBorderline High Cholesterol: 200-239 mg/dLHigh Cholesterol: greater than 239 mg/dL LDL Cholesterol Calculated 70 <100 mg/dL [facility] Comment:Desirable LDL: less than 100 mg/dLNear Optimal/Above Optimal LDL: 110- 129 mg/dLBorderline High LDL: 130-159 mg/dLHigh LDL: 160-189 mg/dLVery High LDL: greater than or equal to 190 mg/dL HDL Cholesterol 44 >40 mg/dL [facility] Comment:Desirable HDL: great er than 40 mg/dL Note: This HDL assay may give artificially low results in patients with liver disease. Blood Venous blood specimen / Unknown 09/18/2023 3:06 PM EDT 09/18/2023 4:01 PM EDT Anya Castle MD LAB BLOOD ORDERABLES Final Result [facility] [address] [place] [phone] * Cologuard?? colon cancer screening (03/16/2023 10:25 AM EST) Cologuard Result Negative Negative 03/24/20 5:16 PM EST [facility] (CLIA #:[id number]) Comment: NEGATIVE TEST RESULT. A negative Cologuard result indicates a low likelihood that a colorectal cancer (CRC) or advanced adenoma (adenomatous polyps with more advanced pre-malignant features) is present. The chance that a person with a negative Cologuard test has a colorectal cancer is less than 1 in 1500 (negative predictive value >99.9%) or has an advanced adenoma is less than 5.3% (negative predictive value 94.7%). These data are based on a prospective cross-sectional study of 10,000 individuals at average risk for colorectal cancer who were screened with both Cologuard and colonoscopy. (Luis Vidales al, N Engl J Med 2014;370(14):5309-8397) The normal value (reference range) for this assay is negative. COLOGUARD RE-SCREENING RECOMMENDATION: Periodic colorectal cancer screening is an important part of preventive healthcare for asymptomatic individuals at average risk for colorectal cancer. Following a negative Cologuard result, the [place] Cancer Society and U.S. Multi-Society Task Force screening guidelines recommend a Cologuard re-screening interval of 3 years. References: [place] [employer] Guideline for Colorectal Cancer Screening: https://www.cancer.org/cancer/ssnsj-dbltfp-pwfvsf/btvxtbhoc-cobybzbji-uazmfkb/ac s-rec ommendations.html.; Marcos ABDI, Herbert MCKINNEY, Stephen RAMOS, Colorectal Cancer Screening: Recommendations for Physicians and Patients from the U.S. Multi-Society Task Force on Colorectal Cancer Screening , Am J Gastroenterology 2017; 112:3381-3117. TEST DESCRIPTION: Composite algorithmic analysis of stool DNA-biomarkers with hemoglobin immunoassay. Quantitative values of individual biomarkers are not [...] (Luis Vidales al, N Engl J Med 2014;370(14):3654-0130.) Cologuard may produce a false negative or false positive result (no colorectal cancer or precancerous polyp present at colonoscopy follow up). A negative Cologuard test result does not guarantee the absence of CRC or advanced adenoma (pre-cancer). The current Cologuard screening interval is every 3 years. ([place] [employer] Society and U.S. Multi-Society Task Force). Cologuard performance data in a 10,000 patient pivotal study using colonoscopy as the reference method can be accessed at the following location: www.exactlabs.com/results. Additional description of the Cologuard test process, warnings and precautions can be found at www.cologuard.com. Stool specimen (specimen) 03/16/2023 10:25 AM EST 03/18/2023 6:15 PM EST Anya Castle MD LAB MOLECULAR DIAGNOS TICS ORDERABLES Final Result Performing Organization Address City/[facility]/ZIP Co de Phone Number [facility] (CLIA #:[id number]) [address] [place] [address], * HPV mRNA E6/E7 w/Reflex to HPV Genotypes 16, 18/45 (12/05/2022 12:00 AM EDT) HPV nRNA E6/E7 Not Detected Not Detected [facility] Comment:Methodology: Transcr iption-Mediated AmplificationThis assay detects E6/E7 viral messenger RNA (mRNA) from 14high-risk HPV types (16,18,31,33,35,39,45,51,52,56,58,59,66,68).Cervical sources are required for HPV testing.If a vaginal source from a patient who has had atotal hysterectomy with removal of cervix wassubmitted, please contact the testing laboratoryfor alternative testing options.For additional information, please refer tohttp://education.[employer]/faq/DQR894j6(This link if provided for information/educational purposes only.)THIS TEST WAS PERFORMED AT:[employer] [place] [phone] CASTRO MD HPV mRNA E6/E7 TNP [facility] HPV 16 RNA [facility] HPV 18/45 RNA [facility] 12/05/2022 12/07/2022 8:5 0 AM EDT Anya Castle MD LAB CYTOLOGY ORDERABL ES Final Result Performing Organization Address City/[facility]/ZIP Co de Phone Number [facility] [address] [place] [phone] * Pap Smear (12/05/2022) 12/05/2022 12/07/2022 8:5 0 AM EDT Richelle [facility] - 12/22/2022 2:12 PM EDT ----- ------- Name: Dorothea Zheng Age/Sex: 62/F : 1960 Unit#: [id number] Attend Dr: Anya Salgado MD Re12/05/22 Status: [facility] REF Location: HO.HHCL Disch: ----- ------- SPEC : [id number] RECD: 12/07/22 STATUS: RODERICK SOUZA NUM: [id number] ALKA: 12/05/22- SUBM DR: Anya Salgado MD ENTERED: 12/07/22 SP TYPE: Pap Smr OT : ORDERED: Pap Smear Interpretation Satisfactory for evaluation. No endocervical cells seen. Negative for intraepithelial lesion or malignancy. Coccobacilli consistent with shift in vaginal ana. HPV mRNA E6/E7: NOT DETECTED This assay detects E6/E7 viral messenger RNA (mRNA) from 14 high-risk HPV types (16, 18, 31, 33, 35, 39, 45, 51, 52, 56, 58, 59, 66, 68) HPV testing performed by [facility], [place], [place]. See reference laboratory portion of the EMR for entire report. Clinical Information LMP: Unknown date Previous PAP test: Unknown date/findings Material Received ThinPrep-Cervical ----- ------- Signed (signature on file) Kristan Gonsalves 12/22/22 1412 ----- ------- END OF REPORT us Anya Castle MD LAB CYTOLOGY ORDERABL ES Final Result [facility] [address] [place] [phone] * Albumin, Random Urine W/O Creatinine (08/15/2022 4:31 PM EDT) Albumin, Urine <0.2 See Note: mg/dL [facility] Comment: Reference Range: Reference Range Not established MELISSA [employer] [employer] [place] Ecelles [facility] Comment: The ADA defines abnormalities in albumin excretion as follows: Albuminuria Category Result (mcg/mg creatinine) Normal to Mildly increased <30 Moderately increased 30-299 Severely increased > OR = 300 The ADA recommends that [...] LAB URINE ORDERABLES Final Result [facility] [address], [place] [address] [facility] [address] [place] [address] from Last 3 Months or Most Recently Relevant to Health Maintenance Insurance , [address] [address] DENTAL - [facility] Care Teams Roof Shingler Relationship Specialty Start Date End Date Anya Salgado MD [address] [place] [phone] PCP - General Family Medicine 01/31/18
--- OUTSIDE RECORDS SUMMARY | 2025-01-19 13:43 | XMS_ITS | Encounter Summary ---
Author Organization [employer] Address [address] [facility] 7t [place] [address] Care Team Providers Care Spare Person Name Role Phone Anya Salgado MD Primary Care Provide r Reason for Visit * Reason Onset Date Comments CHW 06/12/2023 Encounter Details Date Type Department Care Team ([facility] st Contact Info) Description 06/12/2023 Telephone [facility] [address] [place], [place] [phone] Anya Salgado MD [address] [place] [address] CHW Social History Tobacco Use Types Packs/Day [...] Miscellaneous Notes * Telephone Encounter - Kiet Nguyen - 06/12/2023 3:35 PM EST Tc [...] Wednesdays, and Walk-In Urgent Care Located in [facility]. Patient provided with after-hours line for [facility], , which offer night time triage service and option to transfer toon call provider if needed. documented in this encounter Plan of Treatment Upcoming Encounters Date Type Department Care Team (Late st Contact Info) Description 01/26/2025 9:15 AM EDT Office Visit [facility] OPT[facility] [address] [place] [address] Dedra Garcia OD [address] [place] [address] 06/14/2025 10:00 AM EST Office Visit [facility] ADULT DENTAL [address] [place] [address] Teddy Shieldsaris [address] [place] [address] documented as of this encounter Visit Diagnoses Not on filedocumented in this encounter Additional Health Concerns Assessment Noted Time PHQ-9 Depression Total Score: 0 12/06/19 23 10:30 AM EDT documented as of this encounter Care Teams Spare Person Relationship Specialty Start Date End Date Anya Salgado MD [address] [place] [address] PCP - General Family Medicine 01/31/18 documented as of this encounter
--- OUTSIDE RECORDS SUMMARY | 2025-01-19 13:43 | XMS_ITS | Encounter Summary ---
Author Organization [employer] Address [address] [facility] [address] [place] [address] Care Team Providers Care Funding Analyst Name Role Phone Anya Salgado MD Primary Care Provide r Encounter Details Date Type Department Care Team (Latest Contact Info) Description 04/21/2019 Abstract [facility] CONVERSIONS Dental, Provider, DDS Social History [...] Description 01/26/2025 9:15 AM EDT Office Visit [facility] OPTOMETRY [address] [place] [address] Dedra Garcia, OD [address] [place] [address] 06/14/2025 10:00 AM EST Office Visit [facility] ADULT DENTAL [address] [place] [address] Alyson, Lluvia [address] [place] [address] documented as of this encounter Visit Diagnoses Not on filedocumented in this encounter Care Teams Funding Analyst Relationship Specialty Start Date End Date Anya Salgado MD [address] [place] [address] PCP - General Family Medicine 01/31/18 documented as of this encounter
--- OUTSIDE RECORDS SUMMARY | 2025-01-19 13:43 | XMS_ITS | Encounter Summary ---
Author Organization [employer] Address [address] [place] [address] Care Team Providers Care Ring Cutter Lathe Operator Name Role Phone Anya Salgado MD Primary Care Provide r Encounter Details Date Type Department Care Team ([facility] st Contact Info) Description 12/25/2024 Telephone [facility] [address], [place] [phone] Anya Salgado MD [address] [place], [place] [phone] Social History Tobacco Use Types Packs/Day Years [...] Description 01/26/2025 9:15 AM EDT Office Visit [facility] OPT[facility] [address] [place] [address] TarkaDedra, OD [address] [place] [address] 06/14/2025 10:00 AM EST Office Visit [facility] [address] [place] [address] Alyson, Lluvia [address] [place] [address] documented as of this encounter Visit Diagnoses Not on filedocumented in this encounter Additional Health Concerns Assessment Noted Time PHQ-9 Depression Total Score: 0 12/31/19 24 10:55 AM EDT documented as of this encounter Care Teams Ring Cutter Lathe Operator Relationship Specialty Start Date End Date Anya Salgado MD [address] [place] [address] PCP - General Family Medicine 01/31/18 documented as of this encounter
--- OUTSIDE RECORDS SUMMARY | 2025-01-19 13:43 | XMS_ITS | Clinical Summary ---
Author Organization [facility] Address [address] [place] [address] Phone Care Team Providers Care Feed House Supervisor Name Role Phone Catia Bernal MD Primary Care Provider Allergies No known active allergies Medications acetaminophen (TYLENOL 8 HOUR) 650 mg 8 hr tablet TAKE 1 TABLET BY MOUTH EVERY 8 HOURS NEEDED FOR PAIN. DO NOT BREAK, CRUSH, DISSOLVE OR CHEW. Active glipiZIDE (GLUCOTROL XL) 10 mg 24 hr tablet Take 1 tablet (10 mg total) by mouth 2 times daily. 4 Active gabapentin (NEURONTIN) 100 mg capsule Take 1 capsule (100 mg total) by mouth 2 times daily. 2 Active atorvastatin (LIPITOR) 40 mg tablet Take 1 tablet (40 mg total) by mouth daily. 3 Active alcohol swabs (Alcohol Prep Pads) pads, medicated 2 (two) times a day. 2 Active hydrOXYzine HCL (ATARAX) 25 mg tablet Take 1 tablet (25 mg total) by mouth 3 times daily as needed. 3 Active diclofenac (VOLTAREN) 1 % topical gel Apply 2 g topically 4 (four) times a day if needed (pain). 100 g 11 5 05/31/19 26 Active lisinopriL (PRINIVIL,ZESTRIL) 20 mg tablet Take 1 tablet (20 mg total) by mouth 1 (one) time each day. 30 each 5 5 05/31/19 26 Active cholecalciferol (Vitamin D3) 50 mcg (2,000 unit) tablet Take 1 tablet (2,000 Units total) by mouth 1 (one) time each day. 90 tablet 3 5 12/10/19 26 Active liraglutide (VICTOZA) 0.6 mg/0.1 mL (18 mg/3 mL) injection Inject 1.2 mg under the skin 1 (one) time each day. 3 mL 6 5 06/08/19 26 Active sAXagliptin (ONGLYZA) 5 mg tabletIndications: Type 2 diabetes mellitus without complication, without long-term current use of insulin ([facility] V24, [facility] V28),Uncontrolled type 2 diabetes mellitus with hyperglycemia ([facility] V24, [facility] V28) Take 1 tablet (5 mg total) by mouth 1 (one) time each day. 30 tablet 11 5 12/11/19 26 Active pioglitazone (Actos) 30 mg tablet Take 1 tablet (30 mg total) by mouth 1 (one) time each day. 30 each 11 5 12/11/19 26 Active Active Problems Problem Noted Date Diagnosed Date Osteoarthritis of both knees 12/02/2024 Type 2 diabetes mellitus wit hout complication, without long-term current use of insulin ([facility] V24, [facility] V28) 12/02/2024 Mixed hyperlipidemia 12/02/2024 Primary hypertension 12/02/2024 Helicobacter pylori infection 12/02/2024 Encounters Date Type Department Care Team Description 01/12/2025 Results Follow-Up Internal Medicine - [address] [phone] Catia Bernal MD 12/11/2024 Telephone Internal Medicine [address] [phone] Asuncion Padilla [place] 12/11/2024 Telephone Adult Medicine [address] [phone] Ana Mazariegos PharmD 12/02/2024 9:15 AM EDT Office Visit Internal Medicine [address] [place] [phone] Catia Bernal MD Encounter for annual physical exam (Primary Dx); Other fatigue; Other abnormal glucose; Vitamin D deficiency; Encounter for lipid screening for cardiovascular disease; Osteoarthritis of both knees, unspecified osteoarthritis type; Type 2 diabetes mellitus without complication, without long-term current use of insulin ([facility] V24, [facility] V28); Mixed hyperlipidemia; Primary hypertension; Encounter for screening mammogram for malignant neoplasm of breast; Urinary tract infection symptoms; Gastroesophageal reflux disease, unspecified whether esophagitis present; Helicobacter pylori infection; Uncontrolled type 2 diabetes mellitus with hyperglycemia ([facility] V24, [facility] V28) 12/02/2024 Telephone Internal Medicine [address] [place] [phone] Catia Bernal MD 12/02/2024 [place] [facility] [address] [phone] Catia Bernal MD from Last 3 Months Surgical History Surgery Date Site/Laterality Comments EYE SURGERY 07/11/2023 Bilateral SECTION 05/24/1993 Medical History Medical History Date Comments Primary hypertension 12/02/2024 Osteoarthritis of both knees 12/02/2024 Type 2 diabetes mellitus wit hout complication, without long-term current use of insulin ([facility] V24, [facility] V28) 12/02/2024 Mixed hyperlipidemia 12/02/2024 Family History Medical History Relation Name Comments Diabetes Father HTN Father Breast cancer Mother Relation Name Status Comments Father Maternal Grandfather Maternal Grandmother Mother Paternal Grandfather Paternal Grandmother Social History Tobacco Use Types Packs/Day Years Used Date Smoking Tobacco: Never Smokeless Tobacco: Never Tobacco Cessation:Counseling Given: [...] Orientation Straight 12/03/2024 12 :42 PM EDT Obstetrics History Last Filed Vital Signs Vital Sign Reading Time Taken Comments Blood Pressure 128/80 12/02/2024 9:13 AM EDT Pulse 68 12/02/2024 9:13 AM EDT Temperature - - Respiratory Rate - - Oxygen Saturation 99% 12/02/2024 9:13 AM EDT Inhaled Oxygen Concentration - - Weight 83 kg (183 lb) 12/02/2024 9:13 AM EDT Height 157.5 cm (5' 2 ) 12/02/2024 9:13 AM EDT Body Mass Index 33.47 12/02/2024 9:13 AM EDT Plan of Treatment Upcoming Encounters Date Type Department Care Team (Late st Contact Info) Description 02/22/2025 9:00 AM EST Appointment [facility] Endoscopy [address] [place] [phone] Everett Love DO [address] [phone] 02/23/2025 8:30 AM EST Medication Management Adult Medicine [address] [phone] Ana Mazariegos, PharmD [address] [place] [address] Health Maintenance Due Date Last Done Comments Breast Cancer Screening 1961 DTaP,Tdap,and Td Vaccines (1 - Tdap) 1980 Hepatitis A Vaccines (1 of 2 - Risk 2-dose series) 1980 Zoster Vaccines (1 of 2) 04/14/2016 02/18/2016 Hepatitis B Vaccines (1 of 3 - Risk 3-dose series) 2021 RSV Immunization Adult Patients (1 - Risk 60-74 years 1-dose series) 2021 Hepatitis C Screening 03/14/2022 Diabetes: Annual Retina Eye Exam 07/10/2024 07/11/2023 COVID-19 Vaccine ( season) 2024 02/14/2022, 05/03/2021, 07/18/2020, Additional history exists Influenza Vaccine (#1) 2024 , 02/20/2023, 02/14/2022, Additional history exists Depression Screening 04/14/2025 Postpon ed from 04/15/2024 (Not clinically appropriate to address at this time) Diabetes: Blood Sugar Control Test (HGBA1C) 06/11/2025 12/09/2024, 07/07/2024 Diabetes: Annual Foot Exam 12/02/2025 12/02/2024 Social Influencers of Health Screening 12/02/2025 12/02/2024 Cervical Cancer Screening: Pap Smear 12/05/2025 12/05/2022 Diabetes: Annual Urine Albumin-Creatinine Ratio (uACR) 12/09/2025 12/09/2024, 08/15/2022 Diabetes: Annual GFR (Glomerular Filtration Rate) 12/09/2025 12/09/2024, 05/26/2024 Hypertension/CHF/CAD Annual BMP Blood Test 12/09/2025 12/09/2024, 05/26/2024 Cholesterol Screening (Lipid Panel) 12/09/2029 12/09/2024, 09/18/2023 Colorectal Cancer Screening: Colonoscopy 12/03/2034 12/03/2024 Varicella Vaccines Aged Out 02/18/2016 No longer eligible based on patient's age to complete this topic Colorectal Cancer Screening: FIT-DNA (Cologuard) Discontinued 03/16/2023 Pneumococcal Vaccine: 50+ Years Completed 09/18/2023 HIV Screening Completed 12/09/2024 HIB Vaccines Aged Out No longer eligi [...] Procedure Name Priority Date/Time Associated Diagnosis Comments HELICOBACTER PYLORI ANTIGEN, STOOL Routine 01/08/2025 7:43 AM EDT Helicobacter pylori infection RASMUSSEN URINE CULTURE TUBE Routine 12/09/2024 10:23 AM EDT Urinary tract infection symptoms URINALYSIS WITH REFLEX MICROSCOPIC AND CULTURE Routine 12/09/2024 10:23 AM EDT Urinary tract infection symptoms CBC WITH AUTO DIFFERENTIAL Routine 12/09/2024 10:23 AM EDT Encounter for annual physical exam Other fatigue URINALYSIS WITH REFLEX MICROSCOPIC AND CULTURE Routine 12/09/2024 10:23 AM EDT Urinary tract infection symptoms HIV 1, 2 ANTIBODY, P24 ANTIGEN WITH REFLEX TO DIFFERENTIATION Routine 12/09/2024 10:23 AM EDT Encounter for annual physical exam MICROALBUMIN CREATININE URINE RATIO Routine 12/09/2024 10:23 AM EDT Encounter for annual physical exam Type 2 diabetes mellitus without complication, without long-term current use of insulin ([facility] V24, [facility] V28) THYROID STIMULATING HORMONE WITH REFLEX TO FREE T4 AND FREE T3 Routine 12/09/2024 10:23 AM EDT Encounter for annual physical exam Other fatigue VITAMIN D 25 HYDROXY Routine 12/09/2024 10:23 AM EDT Encounter for annual physical exam Vitamin D deficiency LIPID PANEL WITH REFLEX TO DIRECT LDL Routine 12/09/2024 10:23 AM EDT Encounter for annual physical exam Mixed hyperlipidemia COMPREHENSIVE METABOLIC PANEL Routine 12/09/2024 10:23 AM EDT Encounter for annual physical exam Other fatigue VITAMIN B12 Routine 12/09/2024 10:23 AM EDT Encounter for annual physical exam Other fatigue HEMOGLOBIN A1C Routine 12/09/2024 10:23 AM EDT Encounter for annual physical exam Other abnormal glucose Type 2 diabetes mellitus without complication, without long-term current use of insulin ([facility] V24, [facility] V28) CBC AND DIFFERENTIAL Routine 12/09/2024 10:23 AM EDT Encounter for annual physical exam Other fatigue COLONOSCOPY Routine 12/03/2024 1:19 PM EDT from Last 3 Months Results * Helicobacter pylori antigen, stool (01/08/2025 7:43 AM EDT) Helicobacter Pylori Ag Not detected Not detected 01/12/2025 2:52 PM EDT [facility] Comment: This test was performed at [facility] using a chemiluminescent immunoassay intended for the qualitative determination of helicobacter pylori (H. pylori) antigen in human stool. The test is an aid in the diagnosis of patients suspected of H. pylori infection and to measure post therapy response from patients. Assay results should be used in conjunction with other clinical and laboratory data to assist the clinician in making individual patient management decisions. A negative test result does not preclude the possibility of the presence of H. pylori antigen in the specimen, which may occur if the level of antigen is below the detection limit of the test. Antimicrobials, proton pump inhibitors, and bismuth preparations are known to suppress H. pylori and, if ingested, may give a false negative result. In these cases a new fecal sample should be collected and tested 14 days after treatment has stopped. Positive results from patients that have used antibiotics, PPIs, or bismuth compounds in the 14 days prior to fecal sample collection are still considered accurate. This assay has not been evaluated in a pediatric population. This test has been approved as an in vitro diagnostic by the [place] Food and Drug Administration. Test performed at [facility], [address] , [place] [address] Princess Love MD, PhD - Horse [employer] Stool Rectum structure / Unknown Non-blood Collection / Unknown 01/08/2025 7:43 AM EDT 01/08/2025 8:28 AM EDT Catia Bernal MD LAB BODY FLUIDS AND STOOLS ORDER LISA Final Result [facility] [address] [place] [address] * HIV 1,2 antibody, p24 antigen with reflex to differentiation (12/09/2024 10:23 AM EDT) [facility] HIV Combo AB/AG Negative Negative LAB CHEMISTRY METHOD 12/09/2024 6:45 PM EDT [facility] Blood Venous blood specimen / Unknown Venipuncture / Unknown 12/09/2024 10:23 AM EDT 12/09/2024 10:23 AM EDT Narrative [facility] - 12/09/2024 6:45 PM EDT This assay is a 4th generation assay allowing for earlier detection of HIV infection by detecting the presence of the HIV-1 p24 antigen as well as the traditional antibodies to HIV type 1 (including group O) and type 2. Use of a 4th generation assay is the current CDC recommendation for HIV screening. Catia Bernal MD LAB BLOOD ORDERABLES Final Resul t Performing Organization Address City/[facility]/ZIP Co de Phone Number [facility] [address] [place] [address], [place] [phone] * Urinalysis with reflex microscopic and culture (12/09/2024 10:23 AM EDT) [facility] Specific Hart Urine 1.016 1.003 - 1.030 LAB URINALYSIS - AUTOMATED METHOD 12/09/2024 2:34 PM EDT [facility] pH, Urine 6.5 5.0 - 8.0 pH LAB URINALYSIS - AUTOMATED METHOD 12/09/2024 2:34 PM EDT [facility] Leukocytes, Urine Negative Negative LAB URINALYSIS - AUTOMATED METHOD 12/09/2024 2:34 PM EDT [facility] Nitrite, Urine Negative Negative LAB URINALYSIS - AUTOMATED METHOD 12/09/2024 2:34 PM EDT [facility] Protein, Urine Negative <=Trace mg/dL LAB URINALYSIS - AUTOMATED METHOD 12/09/2024 2:34 PM EDT [facility] Glucose, Urine Negative Negative mg/dL LAB URINALYSIS - AUTOMATED METHOD 12/09/2024 2:34 PM EDT [facility] Ketones, Urine Negative Negative mg/dL LAB URINALYSIS - AUTOMATED METHOD 12/09/2024 2:34 PM EDT [facility] Urobilinogen, Urine 0.2 0.2 - 1.0 mg/dL LAB URINALYSIS - AUTOMATED METHOD 12/09/2024 2:34 PM EDT [facility] Bilirubin, Urine Negative Negative LAB URINALYSIS - AUTOMATED METHOD 12/09/2024 2:34 PM EDT [facility] Blood, Urine Negative Negative LAB URINALYSIS - AUTOMATED METHOD 12/09/2024 2:34 PM EDT [facility] Urine Urine specimen obtained by clean catch procedure / Unknown Non-blood Collection / Unknown 12/09/2024 10:23 AM EDT 12/09/2024 10:23 AM EDT us Catia Bernal MD LAB URINE ORDERABLES Final Resul t Performing Organization Address City/[facility]/ZIP Co de Phone Number [facility] [address] [place] [address], [place] [phone] * Rasmussen urine culture tube (12/09/2024 10:23 AM EDT) Extra Tube Hold for add-ons. 12/09/2024 4:01 PM EDT [facility] Comment:Auto resulted. Urine Urine specimen obtained by clean catch procedure / Unknown Non-blood Collection / Unknown 12/09/2024 10:23 AM EDT 12/09/2024 10:23 AM EDT us Catia Bernal MD LAB URINE ORDERABLES Final Resul t [facility] [address] [place] [address], [place] [phone] * Thyroid stimulating hormone with reflex to free t4 and free t3 (12/09/2024 10:23 AM EDT) TSH 2.72 0.40 - 4.00 mcIU/mL LAB CHEMISTRY METHOD 12/09/2024 4:54 PM EDT [facility] Blood Venous blood specimen / Unknown Venipuncture / Unknown 12/09/2024 10:23 AM EDT 12/09/2024 10:23 AM EDT Catia Bernal MD LAB BLOOD ORDERABLES Final Resul t Performing Organization Address [facility] Co de Phone Number [facility] [address] [place] [address], [place] [phone] * (ABNORMAL) Lipid panel with reflex to direct LDL (12/09/2024 10:23 AM EDT) Cholesterol 176 0 - 200 mg/dL LAB CHEMISTRY METHOD 12/09/2024 4:28 PM EDT [facility] Triglycerides 166(H) 0 - 150 mg/dL LAB CHEMISTRY METHOD 12/09/2024 4:28 PM EDT [facility] HDL 53 >=40 mg/dL LAB CHEMISTRY METHOD 12/09/2024 4:28 PM EDT [facility] LDL Calculated 90 0 - 100 mg/dL LAB CHEMISTRY METHOD 12/09/2024 4:28 PM EDT [facility] Comment:Estimated LDL Calcul ated using equation: Total cholesterol - HDL cholesterol - (Triglycerides/5) VLDL Cholesterol Ivan 33.2 mg/dL LAB CHEMISTRY METHOD 12/09/2024 4:28 PM EDT [facility] Non HDL Chol. (LDL+VLDL) 123 <145 mg/dL LAB CHEMISTRY METHOD 12/09/2024 4:28 PM EDT [facility] Chol/HDL Ratio 3.3 0.0 - 4.4 LAB CHEMISTRY METHOD 12/09/2024 4:28 PM EDT [facility] Blood Venous blood specimen / Unknown Venipuncture / Unknown 12/09/2024 10:23 AM EDT 12/09/2024 10:23 AM EDT us Catia Bernal MD LAB BLOOD ORDERABLES Final Resul t [facility] [address] [place] [address], * (ABNORMAL) CBC auto differential (12/09/2024 10:23 AM EDT) WBC 6.3 4.8 - 10.8 K/mcL LAB HEMETOLOGY METHOD 12/09/2024 2:38 PM EDT [facility] RBC 4.80 3.80 - 4.80 M/mcL LAB HEMETOLOGY METHOD 12/09/2024 2:38 PM EDT [facility] Hemoglobin 13.0 11.5 - 16.0 g/dL LAB HEMETOLOGY METHOD 12/09/2024 2:38 PM EDT [facility] Hematocrit 41.0 35.0 - 47.0 % LAB HEMETOLOGY METHOD 12/09/2024 2:38 PM EDT [facility] MCV 85.8 79.0 - 98.0 FL LAB HEMETOLOGY METHOD 12/09/2024 2:38 PM EDT [facility] MCH 27.2 27.0 - 32.0 pcg LAB HEMETOLOGY METHOD 12/09/2024 2:38 PM EDT [facility] MCHC 31.7(L) 32.0 - 37.0 g/dL LAB HEMETOLOGY METHOD 12/09/2024 2:38 PM EDT [facility] RDW 13.2 11.0 - 15.0 % LAB HEMETOLOGY METHOD 12/09/2024 2:38 PM EDT [facility] Platelets 287 130 - 400 K/mcL LAB HEMETOLOGY METHOD 12/09/2024 2:38 PM EDT [facility] MPV 10.6 7.0 - 11.0 FL LAB HEMETOLOGY METHOD 12/09/2024 2:38 PM EDT [facility] NRBC 0.0 <1.0 % LAB HEMETOLOGY METHOD 12/09/2024 2:38 PM EDT [facility] NRBC Absolute 0.00 <0.10 K/mcL LAB HEMETOLOGY METHOD 12/09/2024 2:[facility] Neutrophils Relative 51.5 % LAB HEMETOLOGY METHOD 12/09/2024 2:38 PM [facility] Lymphocytes Relative 37.8 % LAB HEMETOLOGY METHOD 12/09/2024 2:38 PM T [facility] Monocytes Relative 8.6 % LAB HEMETOLOGY METHOD 12/09/2024 2:38 PM [facility] Eosinophils Relative 1.6 % LAB HEMETOLOGY METHOD 12/09/2024 2:38 PM [facility] Basophils Relative 0.3 % LAB HEMETOLOGY METHOD 12/09/2024 2:38 PM T [facility] Immature Granulocytes Relative 0.2 % LAB HEMETOLOGY METHOD 12/09/2024 2:38 [facility] Neutrophils Absolute 3.24 1.50 - 7.00 K/mcL LAB HEMETOLOGY METHOD 12/09/2024 2:38 [facility] Lymphocytes Absolute 2.38 1.00 - 5.00 K/mcL LAB HEMETOLOGY METHOD 12/09/2024 2:38 PM EDT [facility] Monocytes Absolute 0.54 0.20 - 1.00 K/mcL LAB HEMETOLOGY METHOD 12/09/2024 2:38 PM EDT [facility] Eosinophils Absolute 0.10 0.00 - 0.50 K/[facility] HEMETOLOGY METHOD 12/09/2024 2:38 PM EDT [facility] Basophils Absolute 0.02 0.00 - 0.20 K/[facility] HEMETOLOGY METHOD 12/09/2024 2:38 PM EDT [facility] Immature Granulocytes Absolute 0.01 0.00 - 0.03 K/[facility] HEMETOLOGY METHOD 12/09/2024 2:38 PM EDT [facility] Blood Venous blood specimen / Unknown Venipuncture / Unknown 12/09/2024 10:23 AM EDT 12/09/2024 10:23 AM EDT Catia Bernal MD LAB BLOOD ORDERABLES Final Resul t [facility] [address] [place] [address], * Microalbumin creatinine urine ratio (12/09/2024 10:23 AM EDT) Creatinine, Urine 111.0 mg/dL LAB CHEMISTRY METHOD 12/09/2024 3:14 PM EDT [facility] Microalb, Ur 8.0 0.0 - 29.0 mg/L LAB CHEMISTRY METHOD 12/09/2024 3:14 PM EDT [facility] Microalb/Creat Ratio 7 <30 mg/g creat LAB CHEMISTRY METHOD 12/09/2024 3:14 PM EDT [facility] Urine Urine specimen obtained by clean catch procedure / Unknown Non-blood Collection / Unknown 12/09/2024 10:23 AM EDT 12/09/2024 10:23 AM EDT us Catia Bernal MD LAB URINE ORDERABLES Final Resul t Performing Organization Address City/[facility]/ZIP Co de Phone Number [facility] [address] [place] [address], [place] [phone] * (ABNORMAL) Vitamin D 25 hydroxy (12/09/2024 10:23 AM EDT) Vit D, 25-Hydroxy 21.1(L) 30.0 - 80.0 ng/mL LAB CHEMISTRY METHOD 12/09/2024 4:54 PM EDT [facility] Blood Venous blood specimen / Unknown Venipuncture / Unknown 12/09/2024 10:23 AM EDT 12/09/2024 10:23 AM EDT us Catia Bernal MD LAB BLOOD ORDERABLES Final Resul t Performing Organization Address [facility] de Phone Number [facility] [address] [place] [address], [place] [phone] * (ABNORMAL) Hemoglobin A1c (12/09/2024 10:23 AM EDT) Pathologist [facility] Hemoglobin A1C 9.7(H) <6.5 % LAB CHEMISTRY METHOD 12/09/2024 9:26 PM EDT [facility] Mean Bld Glu Estim. 232 mg/dL LAB CHEMISTRY METHOD 12/09/2024 9:26 PM EDT [facility] Blood Venous blood specimen / Unknown Venipuncture / Unknown 12/09/2024 10:23 AM EDT 12/09/2024 10:23 AM EDT us Catia Bernal MD LAB BLOOD ORDERABLES Final Resul t Performing Organization Address City/[facility]/ZIP Co de Phone Number [facility] [address] [place] [address], [place] [phone] * Vitamin B12 (12/09/2024 10:23 AM EDT) Pathologist [facility] Vitamin B-12 824 250 - 900 pcg/mL LAB CHEMISTRY METHOD 12/09/2024 4:52 PM [facility] Blood Venous blood specimen / Unknown Venipuncture / Unknown 12/09/2024 10:23 AM EDT 12/09/2024 10:23 AM EDT us Catia Bernal MD LAB BLOOD ORDERABLES Final Resul t [facility] [address] [place] [address], * (ABNORMAL) Comprehensive metabolic panel (12/09/2024 10:23 AM EDT) [facility] Sodium 137 133 - 145 mmol/L LAB CHEMISTRY METHOD 12/09/2024 4:52 PM [facility] Potassium 4.9 3.5 - 5.5 mmol/L LAB CHEMISTRY METHOD 12/09/2024 4:52 PM [facility] Chloride 104 96 - 110 mmol/L LAB CHEMISTRY METHOD 12/09/2024 4:52 PM [facility] CO2 31 21 - 32 mmol/L LAB CHEMISTRY METHOD 12/09/2024 4:52 PM [facility] Anion Gap 2(L) 3 - 11 LAB CHEMISTRY METHOD 12/09/2024 4:52 PM [facility] Glucose 214(H) 70 - 100 mg/dL LAB CHEMISTRY METHOD 12/09/2024 4:52 PM [facility] BUN 10 5 - 25 mg/dL LAB CHEMISTRY METHOD 12/09/2024 4:52 PM [facility] Creatinine 0.84 0.50 - 1.10 mg/dL LAB CHEMISTRY METHOD 12/09/2024 4:52 PM [facility] eGFR 78 >=60 mL/min/1. 73m2 LAB CHEMISTRY METHOD 12/09/2024 4:52 PM EDT [facility] Comment:Calculation based on the Chronic Kidney Disease Epidemiology Collaboration (CKD-EPI) equation refit without adjustment for race. BUN/Creatinine Ratio 11.9 LAB CHEMISTRY METHOD 12/09/2024 4:52 PM EDT [facility] Calcium 9.6 8.5 - 10.5 mg/dL LAB CHEMISTRY METHOD 12/09/2024 4:52 PM [facility] AST (SGOT) 25 10 - 42 unit/L LAB CHEMISTRY METHOD 12/09/2024 4:52 PM [facility] ALT (SGPT) 30 10 - 60 unit/L LAB CHEMISTRY METHOD 12/09/2024 4:52 PM [facility] Alkaline Phosphatase 86 42 - 121 unit/L LAB CHEMISTRY METHOD 12/09/2024 4:52 PM [facility] Total Protein 8.0 6.0 - 8.0 g/dL LAB CHEMISTRY METHOD 12/09/2024 4:52 PM [facility] Albumin 3.9 3.2 - 5.0 g/dL LAB CHEMISTRY METHOD 12/09/2024 4:52 PM [facility] Total Bilirubin 0.4 0.0 - 1.4 mg/dL LAB CHEMISTRY METHOD 12/09/2024 4:52 [facility] Blood Venous blood specimen / Unknown Venipuncture / Unknown 12/09/2024 10:23 AM EDT 12/09/2024 10:23 AM EDT us Catia Bernal MD LAB BLOOD ORDERABLES Final Resul t [facility] [address] [place] [address], * COLONOSCOPY (12/03/2024 1:19 PM EDT) Anatomical Region Laterality Modality Endoscopy us Whitney Oleary MD GI~PROCEDURE ORDERABLES Fin al Result from Last 3 Months Insurance [facility] [address] [place] [address] Care Teams Feed House Supervisor Relationship Specialty Start Date End Date Catia Bernal MD [address] [place] [address] PCP - General Internal Medicine 07/16/24
--- OUTSIDE RECORDS SUMMARY | 2025-01-19 13:43 | XMS_ITS | Encounter Summary ---
Author Organization [employer] Address [address] [facility] [facility] [address] [place] [address] Care Team Providers Care Opener Verifier [employer] Name Role Phone Anya Salgado MD Primary Care Provide r Reason for Visit * Reason Onset Date Comments Med Refill 03/19/2024 Encounter Details Date Type Department Care Team ([facility] st Contact Info) Description 03/19/2024 Telephone [facility] [address] [place], [place] [phone] Anya Salgado MD [address] [place] [address] Med Refill Social History Tobacco Use Types [...] the past 12 months, has t he [employer], gas, oil or water [employer] threatened to shut off services in your [...] 2.5 MG tablet To be sent to: [facility] - [place], [place] - [address] documented in this encounter Plan of Treatment Upcoming Encounters Date Type Department Care Team (Late st Contact Info) Description 01/26/2025 9:15 AM EDT Office Visit [facility] [address] [place] [address] Dedra Garcia, OD [address] [place] [address] 06/14/2025 10:00 AM EST Office Visit [facility] D[facility] [address] [place], [place] [phone] Lluvia Shields [address] [place] [address] documented as of this encounter Visit Diagnoses Not on filedocumented in this encounter Additional Health Concerns Assessment Noted Time PHQ-9 Depression Total Score: 0 12/31/19 24 10:55 AM EDT documented as of this encounter Care Teams Opener Verifier [employer] Relationship Specialty Start Date End Date Anya Salgado MD [address] [place] [address] PCP - General Family Medicine 01/31/18 documented as of this encounter
--- OUTSIDE RECORDS SUMMARY | 2025-01-19 13:43 | XMS_ITS | Encounter Summary ---
Author Organization [employer] Address [address] [facility] [address] [place] [address] Care Team Providers Care Nuclear Fuel Enrichment Technician Name Role Phone Anya Salgado MD Primary Care Provide r Reason for Visit * Reason Onset Date Comments Pre-visit Planning 12/11/2023 Encounter Details Date Type Department Care Team ([facility] st Contact Info) Description 12/11/2023 Telephone [facility] [address] [place], [place] [phone] Anya Salgado MD [address] [place], [place] [phone] Pre-visit Planning Social History Tobacco Use Types [...] Description 01/26/2025 9:15 AM EDT Office Visit [facility] OPTOMETRY [address] [place] [address] Dedra Garcia, OD [address] [place] [address] 06/14/2025 10:00 AM EST Office Visit [facility] [address] [place] [address] Alyson, Lluvia [address] [place] [address] documented as of this encounter Visit Diagnoses Not on filedocumented in this encounter Additional Health Concerns Assessment Noted Time PHQ-9 Depression Total Score: 0 12/06/19 10:30 AM EDT documented as of this encounter Care Teams Nuclear Fuel Enrichment Technician Relationship Specialty Start Date End Date Anya Salgado MD [address] [place] [address] PCP - General Family Medicine 01/31/18 documented as of this encounter
== END 2025-01-19 11:04 | disposition home or self-care (01) ==
LOC: HO.MAMMO 11:03
PROVIDERS: PCP Internal Medicine; Visit Provider Internal Medicine
DX: Z12.31 Encounter for screening mammogram for malignant neoplasm of breast (principal)
CPT/HCPCS: 77063; 77067

== ENCOUNTER → 2025-01-19 11:30 | Outpatient (BNV) | payer OTHER, SELFPAY | PROVIDERS: PCP Internal Medicine; Visit Provider Internal Medicine | DX: Z12.31 Encounter for screening mammogram for malignant neoplasm of breast (principal) | CPT/HCPCS: 77063; 77067 ==